=== PATIENT | female | born 1990 | race Hispanic/Latino ===

== ENCOUNTER 2019-03-06 04:13 | Emergency (ER) | payer SELFPAY ==
--- OUTSIDE RECORDS SUMMARY | 2019-03-06 04:16 | XMS REPORT ---
:1990 [facility] Address [address] [place] [address] Care Team Providers Name Role Phone Unavailable Unavailable Unavailable Problems This patient has no known problems. Allergies, Adverse Reactions, Alerts This patient has no known allergies or adverse reactions. Medications This patient has no known medications. Encounters Start End Encounter Admission Attending Care Care Encounter Date/Time Date/Time Type Type Clinicians Facility Department ID 2017-05-10 2017-05-10 Outpatient [facility] [id number] 00:00:00 00:00:00 2017-03-28 2017-03-28 Outpatient [facility] [id number] 00:00:00 00:00:00 2017-03-12 2017-03-12 Outpatient [facility] [id number] 11:12:09 11:12:09 2017-03-06 2017-03-06 Outpatient [facility] [id number] 00:00:00 00:00:00 2017-03-05 2017-03-05 Outpatient [facility] [id number] 00:00:00 00:00:00 2017-02-27 2017-02-27 Outpatient [facility] [id number] 13:56:11 13:56:11 2017-02-15 2017-02-15 Outpatient [facility] [id number] 10:01:10 10:01:10 2017-02-13 2017-02-13 Outpatient [facility] [id number] 09:28:41 09:28:41 2017-02-07 2017-02-07 Outpatient [facility] [id number] 13:24:53 13:24:53 2017-01-30 2017-01-30 Outpatient [facility] [id number] 14:37:13 14:37:13
--- OUTSIDE RECORDS SUMMARY | 2019-03-06 04:16 | XMS REPORT ---
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
--- NOTE | 2019-03-06 04:53 | ER ---
Nurse's Notes [facility] Name: Prachi Horne Age: 28 yrs Sex: Female : 1990 Arrival Date: 03/06/2019 Time: 04:16 Bed 20 Private MD: Diagnosis: Laceration without foreign body of right wrist Presentation: 03/06 04:15 Presenting complaint: EMS states: patient banging the window accidentally broke the rr5 glass and sustained laceration to right hand and forearm. 04:15 Transition of care: patient was not received from another setting of care. Complicating rr5 Factors: There are no complicating factors for this patient. Onset of symptoms was March 06, 2019. Risk Assessment: Do you want to hurt yourself or someone else? Patient reports no desire to harm self or others. Initial Sepsis Screen: Does the patient meet any 2 criteria? No. Patient's initial sepsis screen is negative. Does the patient have a suspected source of infection? No. Patient's initial sepsis screen is negative. Care prior to arrival: None. 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 - Social history:: Smoking status: Patient uses tobacco products, 2 sticks per day, Patient uses street drugs, marijuana. - Ebola Screening: : Patient negative for fever greater than or equal to 101.5 degrees Fahrenheit, and additional compatible Ebola Virus Disease symptoms Patient denies exposure to infectious person Patient denies travel to an Ebola-affected area in the 21 days before illness onset. Screenin:31 Abuse screen: Denies threats or abuse. Denies injuries from another. Nutritional rr5 screening: No deficits noted. Tuberculosis screening: No symptoms or risk factors identified. Fall Risk None identified. Total Martínez Fall Scale indicates No Risk (0-24 pts). Assessment: 04:15 General: Appears in no apparent distress. comfortable, Behavior is calm, cooperative, rr5 appropriate for age. Pain: Complains of pain in right hand Pain does not radiate. Pain currently is 4 out of 10 on a pain scale. Quality of pain is described as aching, Pain began suddenly, Is intermittent. 04:15 Neuro: Level of Consciousness is awake, alert, obeys commands, Oriented to person, rr5 place, time, situation, Appropriate for age. Cardiovascular: Capillary refill < 3 seconds Patient's skin is warm and dry. Respiratory: Airway is patent Respiratory effort is even, unlabored, Respiratory pattern is regular, symmetrical. GI: No signs and/or symptoms were reported involving the gastrointestinal system. : No signs and/or symptoms were reported regarding the genitourinary system. EENT: No signs and/or symptoms were reported regarding the EENT system. Derm: Wound noted medial aspect of right wrist and medial aspect of right hand Wound is lacerated wound. Musculoskeletal: Circulation, motion, and sensation intact. Capillary refill < 3 seconds, Range of motion: intact in right wrist palpable radial pulse. Injury Description: Laceration sustained to medial aspect of right wrist and medial aspect of right hand is clean, 0.5 to 2.5 cm long, bleeding moderately. 05:05 Reassessment: Patient appears in no apparent distress at this time. Patient is alert, rr5 oriented x 3, equal unlabored respirations, skin warm/dry/pink. discharge instruction given and explained without complaints made, verbalized understanding. Vital Signs: 04:15 BP 111 / 59; Pulse 94; Resp 17; Temp 97.5; Pulse Ox 99% ; Weight 44.45 kg; Height 5 ft. rr5 1 in. (154.94 cm); Pain 4/10; 05:05 BP 105 / 62; Pulse 90; Resp 16; Pulse Ox 99% on R/A; Pain 0/10; rr5 04:15 Body Mass Index 18.52 (44.45 kg, 154.94 cm) rr5 ED Course: 04:15 Patient has correct armband on for positive identification. Placed in gown. Bed in low rr5 position. Call light in reach. Side rails up X2. 04:15 Pulse ox on. NIBP on. rr5 04:16 Patient arrived in ED. gs 04:21 Munson, Sg, RN is Primary Nurse. rr5 04:25 Nikita De Los Santos MD is Attending Physician. 04:26 Triage completed. rr5 04:30 Arm band placed on left wrist. rr5 04:40 Assist provider with laceration repair on right hand that was 2.5 cm. or less using rr5 marizol. Set up tray. Performed by Nikita De Los Santos MD Dressed with 4X4s, Kerlix, Neosporin, Patient tolerated well. 05:09 Patient did not have IV access during this emergency room visit. rr5 Administered Medications: 04:40 Drug: Lidocaine (1 %) 5 mg {Note: given by dr. 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 Exp: rr5 12/13/2020. Lot #: [id number]. } Route: IM; Site: right deltoid; 05:10 Follow up: Response: No adverse reaction rr5 Outcome: 04:52 Discharge ordered by . 05:09 Discharged to home ambulatory. rr5 05:09 Condition: stable 05:09 Discharge instructions given to patient, Instructed on discharge instructions, follow up and referral plans. Demonstrated understanding of instructions, follow-up care. 05:11 Patient left the ED. rr5 Signatures: Nikita De Los Santos MD MD Sg Munson RN RN rr5
--- NOTE | 2019-03-06 04:53 | EDPHYS ---
Physician Documentation [facility] Name: Prachi Horne Age: 28 yrs Sex: Female : 1990 Arrival Date: 03/06/2019 Time: 04:16 Bed 20 Private MD: ED Physician Nikita Montano HPI: 03/06 04:47 This 28 yrs old Female presents to ER via EMS with complaints of Laceration. gs 04:47 The patient or guardian reports a laceration, clean, 8 cm(s). The complaints affect the gs right wrist diffusely. Onset: The symptoms/episode began/occurred just prior to arrival. Modifying factors: The symptoms are alleviated by nothing, the symptoms are aggravated by nothing. Associated signs and symptoms: Pertinent negatives: numbness distally. Compartment Syndrome negative for numbness, tingling. The patient has not experienced similar symptoms in the past. 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 - Social history:: Smoking status: Patient uses tobacco products, 2 sticks per day, Patient uses street drugs, marijuana. - Ebola Screening: : Patient negative for fever greater than or equal to 101.5 degrees Fahrenheit, and additional compatible Ebola Virus Disease symptoms Patient denies exposure to infectious person Patient denies travel to an Ebola-affected area in the 21 days before illness onset. ROS: 04:47 All other systems are negative. gs Exam: 04:47 Head/Face: Normocephalic, atraumatic. Eyes: Pupils equal round and reactive to light, gs extra-ocular motions intact. Lids and lashes normal. Conjunctiva and sclera are non-icteric and not injected. Cornea within normal limits. Periorbital areas with no swelling, redness, or edema. Cardiovascular: Regular rate and rhythm with a normal S1 and S2. No gallops, murmurs, or rubs. Normal PMI, no JVD. No pulse deficits. Respiratory: Lungs have equal breath sounds bilaterally, clear to auscultation and percussion. No rales, rhonchi or wheezes noted. No increased work of breathing, no retractions or nasal flaring. Abdomen/GI: Soft, non-tender, with normal bowel sounds. No distension or tympany. No guarding or rebound. No evidence of tenderness throughout. Back: No spinal tenderness. No costovertebral tenderness. Full range of motion. Neuro: Awake and alert, GCS 15, oriented to person, place, time, and situation. Cranial nerves II-XII grossly intact. Motor strength 5/5 in all extremities. Sensory grossly intact. Cerebellar exam normal. Normal gait. 04:47 Constitutional: The patient appears alert, awake, uncomfortable. 04:47 Musculoskeletal/extremity: ROM: no acute changes, Pulses: are normal with no appreciated deficits, Sensation intact. 04:47 Skin: injury, laceration(s), the wound is approximately 8 cm(s), with a depth of 1 cm(s), of the right wrist. Vital Signs: 04:15 BP 111 / 59; Pulse 94; Resp 17; Temp 97.5; Pulse Ox 99% ; Weight 44.45 kg; Height 5 ft. rr5 1 in. (154.94 cm); Pain 4/10; 05:05 BP 105 / 62; Pulse 90; Resp 16; Pulse Ox 99% on R/A; Pain 0/10; rr5 04:15 Body Mass Index 18.52 (44.45 kg, 154.94 cm) rr5 Laceration: 04:47 Wound Repair of 8cm ( 3.1in ) subcutaneous laceration to right wrist. Distal gs neuro/vascular/tendon intact. Anesthesia: Local anesthetic administered with 5 mls of 1% lidocaine, Local anesthetic administered with 5 mls of 1% lidocaine. Wound prep: Simple cleansing with betadine, Wound explored moderately, Copious irrigation. Skin closed with 10 Bharat using staple gun. Patient tolerated well. MDM: 04:25 Patient medically screened. gs 04:47 Data reviewed: vital signs, nurses notes. Response to treatment: the patient's symptoms gs have markedly improved after treatment, and as a result, I will discharge patient. Administered Medications: 04:40 Drug: Lidocaine (1 %) 5 mg {Note: given by dr. 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 Exp: rr5 12/13/2020. Lot #: [id number]. } Route: IM; Site: right deltoid; 05:10 Follow up: Response: No adverse reaction rr5 Disposition: 03/06/19 04:52 Discharged to Home. Impression: Laceration without foreign body of right wrist. - Condition is Stable. - Discharge Instructions: Laceration Care, Adult. - Medication Reconciliation Form, Thank You Letter, Antibiotic Education, Prescription Opioid Use form. - Follow up: Private Physician; When: 7 - 10 days; Reason: Staple/Suture removal. Signatures: Nikita Montano MD MD Sg Munson RN RN rr5 Corrections: (The following items were deleted from the chart) 05:11 04:52 03/06/2019 04:52 Discharged to Home. Impression: Laceration without foreign body rr5 of right wrist. Condition is Stable. Forms are Medication Reconciliation Form, Thank You Letter, Antibiotic Education, Prescription Opioid Use. Follow up: Private Physician; When: 7 - 10 days; Reason: Staple/Suture removal.
[2019-03-06] MEDS ORDERED: LIDOCAINE 1% MPF 5 ML VIAL ONE (04:56)
[2019-03-06] MEDS ORDERED: TETANUS & DIPHTHERIA TOX,ADULT 0.5 ML VIAL ONE (04:58)
== END 2019-03-06 05:11 | disposition home or self-care (01) ==
LOC: ER 04:13
PROC: 0JQG0ZZ Repair Right Lower Arm Subcutaneous Tissue and Fascia, Open Approach (ICD-10-PCS; principal; 2019-03-06)
DX: S61.511A Laceration without foreign body of right wrist, initial encounter (principal); W25.XXXA Contact with sharp glass, initial encounter; Y93.9 Activity, unspecified; Y92.9 Unspecified place or not applicable; Z23 Encounter for immunization; F32.9 Major depressive disorder, single episode, unspecified; F41.9 Anxiety disorder, unspecified; F31.9 Bipolar disorder, unspecified
CPT/HCPCS: 90471; 90714; 99284

== ENCOUNTER 2019-03-17 14:01 | Emergency (ER) | payer SELFPAY ==
--- OUTSIDE RECORDS SUMMARY | 2019-03-17 14:08 | XMS REPORT ---
:1990 [facility] Address [address] [place] [address] Care Team Providers Name Role Phone Unavailable Unavailable Unavailable Problems This patient has no known problems. Allergies, Adverse Reactions, Alerts This patient has no known allergies or adverse reactions. Medications This patient has no known medications. Encounters Start End Encounter Admission Attending Care Care Encounter Date/Time Date/Time Type Type Clinicians Facility Department ID 2017-05-10 2017-05-10 Outpatient [facility] [id number] 00:00:00 00:00:00 2017-03-28 2017-03-28 Outpatient [facility] [id number] 00:00:00 00:00:00 2017-03-12 2017-03-12 Outpatient [facility] [id number] 11:12:09 11:12:09 2017-03-06 2017-03-06 Outpatient [facility] [id number] 00:00:00 00:00:00 2017-03-05 2017-03-05 Outpatient [facility] [id number] 00:00:00 00:00:00 2017-02-27 2017-02-27 Outpatient [facility] [id number] 13:56:11 13:56:11 2017-02-15 2017-02-15 Outpatient [facility] [id number] 10:01:10 10:01:10 2017-02-13 2017-02-13 Outpatient [facility] [id number] 09:28:41 09:28:41 2017-02-07 2017-02-07 Outpatient [facility] [id number] 13:24:53 13:24:53 2017-01-30 2017-01-30 Outpatient [facility] [id number] 14:37:13 14:37:13
--- NOTE | 2019-03-17 14:24 | EDPHYS ---
Physician Documentation [facility] Name: Prachi Horne Age: 28 yrs Sex: Female : 1990 Arrival Date: 03/17/2019 Time: 14:04 Bed 12 Private MD: ED Physician Prashanth Ibrahim HPI: 03/17 14:16 This 28 yrs old Female presents to ER via Ambulatory with complaints of Staple kb Removal. 14:16 The patient has marizol on the right wrist. Previous treatment: The patient was kb initially treated 11 day(s) ago, the care was rendered at [facility], Treatment type: The patient's original treatment included marizol. Sutures/marizol progress: The patient's wound displays purulent drainage, redness at site. The patient has not experienced similar symptoms in the past. The patient has been recently seen at the [facility] Emergency Department. Pt reports she has had marizol in for 11 days and was told to get them out at this point, but doesn't feel like they are ready to come out. . 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 - Social history:: Smoking status: Patient uses tobacco products, denies chronic smoking, but will smoke occasionally. - Ebola Screening: : Patient denies travel to an Ebola-affected area in the 21 days before illness onset. ROS: 14:21 Constitutional: Negative for fever, chills, and weight loss, Cardiovascular: Negative kb for chest pain, palpitations, and edema, Respiratory: Negative for shortness of breath, cough, wheezing, and pleuritic chest pain, Abdomen/GI: Negative for abdominal pain, nausea, vomiting, diarrhea, and constipation, Back: Negative for injury and pain, MS/Extremity: Negative for injury and deformity, Neuro: Negative for headache, weakness, numbness, tingling, and seizure. 14:21 Skin: Positive for laceration(s), of the right wrist. Exam: 14:21 Constitutional: This is a well developed, well nourished patient who is awake, alert, kb and in no acute distress. Head/Face: Normocephalic, atraumatic. Chest/axilla: Normal chest wall appearance and motion. Nontender with no deformity. No lesions are appreciated. Cardiovascular: Regular rate and rhythm with a normal S1 and S2. No gallops, murmurs, or rubs. Normal PMI, no JVD. No pulse deficits. Respiratory: Lungs have equal breath sounds bilaterally, clear to auscultation and percussion. No rales, rhonchi or wheezes noted. No increased work of breathing, no retractions or nasal flaring. Abdomen/GI: Soft, non-tender, with normal bowel sounds. No distension or tympany. No guarding or rebound. No evidence of tenderness throughout. MS/ Extremity: Pulses equal, no cyanosis. Neurovascular intact. Full, normal range of motion. Neuro: Awake and alert, GCS 15, oriented to person, place, time, and situation. Cranial nerves II-XII grossly intact. Motor strength 5/5 in all extremities. Sensory grossly intact. Cerebellar exam normal. Normal gait. 14:21 Skin: Wound recheck: Staple laceration closure: mild drainage, mild erythema. Vital Signs: 14:10 BP 118 / 67; Pulse 78; Resp 16; Temp 98.7; Pulse Ox 100% on R/A; Height 5 ft. 1 in. aj1 (154.94 cm) (R); Pain 7/10; MDM: 14:16 Patient medically screened. kb 14:21 Data reviewed: vital signs, nurses notes. Data interpreted: Pulse oximetry: on room air kb is 100 %. Interpretation: normal. Counseling: I had a detailed discussion with the patient and/or guardian regarding: the historical points, exam findings, and any diagnostic results supporting the discharge/admit diagnosis, the need for outpatient follow up, a family practitioner, to return to the emergency department if symptoms worsen or persist or if there are any questions or concerns that arise at home. ED course: Educated on need to keep marizol in place for another 4 days. Will discharge home with antibiotics for infection of wound. Administered Medications: 15:12 Drug: KeFLEX 500 mg Route: PO; aj1 15:12 Drug: Bactrim (160 mg-800 mg (DS) 1 tablet Route: PO; aj1 Disposition: 15:14 Co-signature as Attending Physician, Prashanth Ibrahim MD. rn Disposition: 03/17/19 14:23 Discharged to Home. Impression: Local infection of the skin and subcutaneous tissue, unspecified. - Condition is Stable. - Discharge Instructions: Wound Infection, [id number]. - Prescriptions for Keflex 500 mg Oral Capsule - take 1 capsule by ORAL route every 8 hours for 10 days; 30 capsule. Bactrim DS 800- 160 mg Oral Tablet - take 1 tablet by ORAL route every 12 hours for 10 days; 20 tablet. - Medication Reconciliation Form, Thank You Letter, Antibiotic Education, Prescription Opioid Use form. - Follow up: Emergency Department; When: As needed; Reason: Worsening of condition. Follow up: Private Physician; When: 2 - 3 days; Reason: Recheck today's complaints, Continuance of care, Re-evaluation by your physician. Signatures: Dispatcher [employer] [facility] Parisa Tuttle, CORY-C CORY-Katherine Pérez RN RN aj1 Prashanth Ibrahim MD MD international project engineer: (The following items were deleted from the chart) 15:00 14:17 Wound Culture+[id number].LAB.BRZ ordered. [facility] 15:13 14:23 03/17/2019 14:23 Discharged to Home. Impression: Local infection of the skin and aj1 subcutaneous tissue, unspecified. Condition is Stable. Forms are Medication Reconciliation Form, Thank You Letter, Antibiotic Education, Prescription Opioid Use. Follow up: Emergency Department; When: As needed; Reason: Worsening of condition. Follow up: Private Physician; When: 2 - 3 days; Reason: Recheck today's complaints, Continuance of care, Re-evaluation by your physician. kb
--- NOTE | 2019-03-17 14:24 | ER ---
Nurse's Notes [facility] Name: Prachi Horne Age: 28 yrs Sex: Female : 1990 Arrival Date: 03/17/2019 Time: 14:04 Bed 12 Private MD: Diagnosis: Local infection of the skin and subcutaneous tissue, unspecified Presentation: 03/17 14:09 Presenting complaint: Patient states: She had marizol put in her right wrist 11 days aj1 ago and came to have them taken out. Transition of care: patient was not received from another setting of care. Onset of symptoms was March 17, 2019. Risk Assessment: Do you want to hurt yourself or someone else? Patient reports no desire to harm self or others. Initial Sepsis Screen: Does the patient meet any 2 criteria? No. Patient's initial sepsis screen is negative. Does the patient have a suspected source of infection? No. Patient's initial sepsis screen is negative. Care prior to arrival: None. 14:09 Method Of Arrival: Ambulatory aj1 14:09 Acuity: FLORES 5 aj1 Triage Assessment: 14:10 General: Appears in no apparent distress. uncomfortable, Behavior is calm, cooperative, aj1 appropriate for age. Pain: Complains of pain in right wrist Pain currently is 7 out of 10 on a pain scale. Neuro: Level of Consciousness is awake, alert, obeys commands, Oriented to person, place, time, situation. Cardiovascular: Patient's skin is warm and dry. Respiratory: Airway is patent Respiratory effort is even, unlabored, Respiratory pattern is regular, symmetrical. 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 - Social history:: Smoking status: Patient uses tobacco products, denies chronic smoking, but will smoke occasionally. - Ebola Screening: : Patient denies travel to an Ebola-affected area in the 21 days before illness onset. Screenin:12 Abuse screen: Denies threats or abuse. Denies injuries from another. Nutritional aj1 screening: No deficits noted. Tuberculosis screening: No symptoms or risk factors identified. Fall Risk None identified. Assessment: 15:12 General: Appears in no apparent distress. comfortable, Behavior is calm, cooperative, aj1 appropriate for age. Neuro: Level of Consciousness is awake, alert, obeys commands, Oriented to person, place, time, situation. Cardiovascular: Patient's skin is warm and dry. Respiratory: Airway is patent Respiratory effort is even, unlabored, Respiratory pattern is regular, symmetrical. Vital Signs: 14:10 BP 118 / 67; Pulse 78; Resp 16; Temp 98.7; Pulse Ox 100% on R/A; Height 5 ft. 1 in. aj1 (154.94 cm) (R); Pain 7/10; ED Course: 14:04 Patient arrived in ED. rg4 14:05 Parisa Tuttle FNP-C [facility]. kb 14:05 Prashanth Ibrahim MD is Attending Physician. kb 14:10 Triage completed. aj1 14:10 Arm band placed on Patient placed in an exam room. aj1 15:12 Patient has correct armband on for positive identification. Bed in low position. aj1 15:12 No provider procedures requiring assistance completed. Patient did not have IV access aj1 during this emergency room visit. Administered Medications: 15:12 Drug: KeFLEX 500 mg Route: PO; aj1 15:12 Drug: Bactrim (160 mg-800 mg (DS) 1 tablet Route: PO; aj1 Outcome: 14:23 Discharge ordered by . kb 15:12 Discharged to home ambulatory. aj1 15:12 Condition: good 15:12 Discharge instructions given to patient, Instructed on discharge instructions, follow up and referral plans. medication usage, Demonstrated understanding of instructions, follow-up care, medications, Prescriptions given X 2. 15:13 Patient left the ED. aj1 Signatures: Parisa Tuttle FNP-C FNP-Katherine Pérez, RN RN Magaly Dorsey rg4
[2019-03-17] MEDS ORDERED: SMZ./TMP. 800/160 MG TABLET ONE (15:12)
[2019-03-17] MEDS ORDERED: CEPHALEXIN 250 MG CAP ONE (15:12)
== END 2019-03-17 15:13 | disposition home or self-care (01) ==
LOC: ER 14:01
DX: S61.511D Laceration without foreign body of right wrist, subsequent encounter (principal); L08.9 Local infection of the skin and subcutaneous tissue, unspecified; F41.9 Anxiety disorder, unspecified; F31.9 Bipolar disorder, unspecified; F32.9 Major depressive disorder, single episode, unspecified; Z72.0 Tobacco use
CPT/HCPCS: 99283

== ENCOUNTER 2021-02-02 15:59 | Emergency (ER) | payer SELFPAY ==
--- OUTSIDE RECORDS SUMMARY | 2021-02-02 16:01 | XMS REPORT | Continuity of Care Document ---
:[address] [facility] t Address [address] [place] [address] Care Team Providers Name Role Phone Lenore Valentine Guillermo Attending Clinician Unavailable Indigo OG, L Attending Clinician Problems This patient has no known problems. Allergies, Adverse Reactions, Alerts This patient has no known allergies or adverse reactions. Family History Family Member Diagnosis Comments Start Date Stop Date Source Natural father Diabetes [facility] Social History Social Habit Start Date Stop Date Quantity Comments Source Sex Assigned At [facility] History of tobacco Cigarette Smoker [facility] use Cigarettes smoked 2019-02-25 2019-02-25 [facility] current (pack per 00:00:00 00:00:00 day) - Reported Tobacco use and 2019-02-25 2019-02-25 Never used [facility] alth exposure 00:00:00 00:00:00 Alcohol intake 2019-02-25 2019-02-25 Current drinker [employer] 00:00:00 00:00:00 of alcohol (finding) History [employer] 2017-02-13 2017-02-13 1 Ly Screamin Daily Deals Worry 00:00:00 00:00:00 History [employer] Food 2017-02-13 2017-02-13 1 Ly Screamin Daily Deals Scarcity 00:00:00 00:00:00 Smoking Status Start Date Stop Date Source Current some day smoker 2019-02-25 00:00:00 [facility] Medications Ordered Filled Start Stop Current Ordering Indication Dosage Frequency Signature Comments Components Source Medication Medication Date Date Medication? Clinician (SIG) Name Name ferrous Yes History of 325mg QD Take 1 H arris sulfate 325 5-10 anemia tablet by H ealth mg (65 mg 00:00: mouth iron) 00 daily tablet (with breakfast) . buPROPion Yes 300mg Take 300 Glenn ris (WELLBUTRIN 4-26 mg by Health XL) 300 mg 14:41: mouth extended 00 every release morning. tablet mirtazapine 2017 Yes 15mg Take 15 mg Ly (REMERON) 4-26 by mouth Health 15 mg 14:41: at bedtime tablet 00 nightly. hydrOXYzine Yes 50mg Take 50 mg Ly (ATARAX) 50 4-26 by mouth Heal th mg tablet 14:41: every 8 00 hours as needed for Anxiety. diphenhydrA Yes 50mg 50 mg Harri s MINE 4-[address] [facility] (BENADRYL) 14:41: bedtime as 50 mg 00 needed for capsule Sleep. Immunizations Ordered Immunization Filled Immunization Date Status Commen ts Source Name Name PPD 2017-01-16 Completed [facility] 00:00:00 Procedures This patient has no known procedures. Plan of Care Planned Activity Planned Date Details Comments Source Future Scheduled Test 2022 00:00:00 Screening for [facility] malignant neoplasm of cervix (procedure) [code = 960801964] Future Scheduled Test 2021-06-23 00:00:00 IMM Influenza [facility] Seasonal Jun to November (>/= 19 yrs) [code = IMM Influenza Seasonal Oct to November (>/= 19 yrs)] Future Scheduled Test 2013 00:00:00 Screening for [facility] malignant neoplasm of cervix (procedure) [code = 669029509] Future Scheduled Test 2008 00:00:00 COVID-19 Vaccine (1) [facility] [code = COVID-19 Vaccine (1)] Encounters Start End Encounter Admission Attending Care Care Encounter Source Date/Time Date/Time Type Type Clinicians Facility Department ID 2020-03-23 2020-03-23 [facility] [id number] 13:23:00 23:59:00 Encounter Daniel MARSH [id number] [facility] [id number] 2017-05-10 2017-05-10 Outpatient [facility] [id number] [place] 00:00:00 00:00:00 [facility] 2017-03-28 2017-03-28 Outpatient [facility] [id number] Ly 00:00:00 00:00:00 [facility] 2017-03-12 2017-03-12 Outpatient [facility] [id number] [place] 11:12:09 11:12:09 Health 2017-03-06 2017-03-06 Outpatient [facility] [id number] Ly 00:00:00 00:00:00 [facility] 2017-03-05 2017-03-05 Outpatient [facility] [id number] Ly 00:00:00 00:00:00 [facility] 2017-02-27 2017-02-27 Outpatient [facility] [id number] [place] 13:56:11 13:56:11 [facility] 2017-02-15 2017-02-15 Outpatient [facility] [id number] [place] 10:01:10 10:01:10 [facility] 2017-02-13 2017-02-13 Outpatient [facility] [id number] [place] 09:28:41 09:28:41 [facility] 2017-02-07 2017-02-07 Outpatient [facility] [id number] [place] 13:24:53 13:24:53 [facility] 2017-01-30 2017-01-30 Outpatient [facility] [id number] [place] 14:37:13 14:37:13 Health Results Test Description Test Time Test Comments Results Result Comments Source Hematology 2020-10-02 03:22:00 Test Item Value Reference Range Interpretation Comme nts Hematology (test code = WBCT) 6.4 thou/uL 4.8-10.8 N Hematology (test code = RBCT) 4.13 mill/uL 4.20-5.40 L Hematology (test code = HGBT) 12.0 g/dL 12.0-16.0 N Hematology (test code = HCTT) 34.7 % 36.0-47.0 L Hematology (test code = MCV) 84.0 fL 78.0-98.0 N Hematology (test code = MCH) 29.1 pg 27.0-31.0 N Hematology (test code = MCHC) 34.6 g/dL 32.0-36.0 N Hematology (test code = RDW) 13.5 % 11.5-14.5 N Hematology (test code = PLTT) 190 thou/uL 130-400 N Hematology (test code = MPV) 10.2 fL 7.4-10.4 N Hematology (test code = %NEUT) 51.4 % 42.0-75.0 N Hematology (test code = %LYMPH) 36.7 % 21.0-51.0 N Hematology (test code = %MONO) 8.6 % 0.0-10.0 N Hematology (test code = %EOS) 2.1 % 0.0-10.0 N Hematology (test code = %BASO) 1.2 % 0.0-1.0 H Hematology (test code = NEUT#) 3.3 thou/uL 1.40-6.50 N Hematology (test code = LYMPH#) 2.4 thou/uL 1.20-3.40 N Hematology (test code = MONO#) 0.6 thou/uL 0.11-0.59 H Hematology (test code = EOS#) 0.1 thou/uL 0.0-0.7 N Hematology (test code = BASO#) 0.1 thou/uL 0.0-0.2 N [id number] 03:19:00 Test Item Value Reference Range Interpretation Comments Chemistry (test 135 mmol/L 136-145 L code = NA-T) Chemistry (test 4.3 mmol/L 3.5-5.1 N code = K-T) Chemistry (test 107 mmol/L 98-107 N code = CL) Chemistry (test 22 mmol/L 22-29 N code = CO2) Chemistry (test 10 mmol/L 10-20 N code = ANGP) Chemistry (test 10 mg/dL 7.0-18.7 N code = BUN) Chemistry (test 0.68 mg/dL 0.6-1.1 N code = CREATT) Chemistry (test Greater than 90 Referenc e Range for code = EGFRMDRD) Estimated G FR: Gre ater than 90 mL/min/ 1.73 m2NOTE:The MDRD equation has no t been validated for use with theeld erly (over 70 years of age), women, patients with serious comorbi d condition or pe rsons with extremes o fbody size, muscle ma ss, or nutritional status. Chemistry (test 97 mg/dL 70-105 N code = GLU-T) Chemistry (test 8.8 mg/dL 7.8-10.44 N code = CA) Chemistry (test 0.2 mg/dL 0.2-1.2 N code = TBILI-T) Chemistry (test 7.1 g/dL 6.0-8.3 N code = TP) Chemistry (test 3.7 g/dL 3.5-5.0 N code = ALB) Chemistry (test 3.4 g/dL 2.4-3.5 N code = GLOB) Chemistry (test 1.1 g/dL 1.2-2.2 L code = AG) Chemistry (test 75 U/L 40-110 N code = ALP) Chemistry (test 16 U/L 5-34 N code = AST) Chemistry (test 10 U/L 8-55 N code = ALT) [id number] 03:19:00 Test Item Value Reference Range Interpretation Comments Chemistry (test code = LIP) 31 U/L 8-78 N [id number] 02:51:00 Test Item Value Reference Range Interpretation Comments Urinalysis (test code = Light-Yellow Yellow UACLR) Urinalysis (test code = Clear Clear UACLY) Urinalysis (test code = SPGR) 1.021 1.002-1.036 N Urinalysis (test code = AMILCAR) 5.0 5.0-9.0 N Urinalysis (test code = Negative Paty/uL Negative UALEU) Urinalysis (test code = Negative Negative UANIT) Urinalysis (test code = Negative mg/dL Neg-Trace PROUADIP) Urinalysis (test code = Normal mg/dL Negative GLUCU) Urinalysis (test code = KETU) Negative mg/dL Negative Urinalysis (test code = Normal mg/dL Less than 2 UAUROB) Urinalysis (test code = Negative Negative UABIL) Urinalysis (test code = Negative Negative UABLD) Urine Source: Urine Clean [id number] 02:51:00 Test Item Value Reference Range Interpretation Comments Urinalysis (test Negative Negative Method of s ensitivity- code = BHCGUT) INDETERMINANT : results should be repea sonu after 48-72 hrs POS ITIVE: results may be detected as early as 1 day after the first missed period A dilute urine specimen may no t contain representativel evels of hCG.If pregnanc y is still suspected, a fi rst morning urinespecimen O R a random blood specimen should be obtainedfrom e patient 48-72 hours lat er and re-tested. Urinalysis (test 1.021 1.002-1.036 N code = PREGUSG) US Gallbladder RUQ [facility] G[facility]EL [facility]ATHLEEN : 1990 [facility] Name: GISEL KATH[facility]EN [address] Phys: [place] [id number] : 1990 Age: 30 SEX:F [phone] Exam Date: 10/02/20 Status: DEP ER Acct: [id number] Loc: ERS Pt Unit #: [id number] Report #: [id number] CC: Vishal Millan ULTRASOUND REPORT Order # Category/Exam [id number] ULT/US Gallbladder RUQ ([id number]): . Results PRELIMINARY REPORT/[facility]/EMERGENCY AFTER HOURS PROCEDURE EXAM: US Abdomen Limited, Right Upper Quadrant. CLINICAL HISTORY: HX: RUQ PAIN. SEE NOTES ON LAST IMAGE. THANKS TECHNIQUE: Real-time ultrasound of the right upper quadrant with image documentation. COMPARISON: None provided. FINDINGS: LIVER: 2 hyperechoic masses seen measuring up to 5.3 x 3.4 cm. GALLBLADDER: Gallstones seen in the gallbladder neck measuring up to 1.5 x 0.7 cm. No wall thickening. No pericholecystic fluid. Positive sonographic Oscar sign elicited. COMMON BILE DUCT: No dilation. CBD equals 4 mm. PANCREAS: Unremarkable as visualized. The distal pancreas is obscured by overlying bowel gas. RIGHT KIDNEY: Unremarkable. No hydronephrosis. IMPRESSION: Gallstones with positive sonographic Oscar sign. Cannot exclude a possible early acute cholecystitis. 2 hyperechoic masses seen in the liver showing up to 5.3 x 3.4 cm. This may represent possible hemangiomas, however triphasic CT or MRI recommended for further evaluation. ELECTRONICALLY SIGNED BY: Lauren West MD Oct 02, 2020 4:03:27AM [employer] DIRECTOR This report is intended for review by the ordering physician only, in accordance of law.If you receive this report in error, please call [facility] at [phone]. FINALREPORT Final report by Dr. Johnson Emergency after-hours study ULTRASOUND ABDOMEN LIMITED: (RIGHT UPPER QUADRANT) DATE: 10/02/2020 HISTORY: 30-year-old female with right upper quadrant abdominal pain FINDINGS: Agree with preliminary report by [facility]. IMPRESSION: 1) Positive for cholelithiasis: 15 x 7 mm gallstone in gallbladder neck. Distended lumen. Reportedly positive sonographic Oscar sign, questionable for acute cholecystitis. 2) Two moderately large solid hepatic masses. One of them is up to 5.6 cm. Recommend multiphase MRIof abdomen, liver mass protocol, with and without contrast. Transcribed Date/Time: 10/02/2020 8:52 AM Reported By: David Johnson MD Electronically Signed Date/Time: 10/02/2055 Technologist: EMELI Dictated Date/Time: 10/02/2022 Transcribed Date/Time:
[2021-02-02] MEDS ORDERED: BUPIVACAINE 0.5% PF 10 ML VIAL ONE (17:02)
[2021-02-02] MEDS ORDERED: LIDOCAINE 1% MPF 30 ML VIAL ONE (17:02)
[2021-02-02] MEDS ORDERED: LIDOCAINE 1% W/EPI 1:100,000 MDV 20 ML VIAL ONE (17:08)
[2021-02-02] MEDS ORDERED: HYDROCODONE/APAP 5/325 MG TAB ONE (17:23)
--- NOTE | 2021-02-02 18:47 | EDPHYS ---
Physician Documentation [facility] Name: Prachi Horne Age: 30 yrs Sex: Female : 1990 Arrival Date: 02/02/2021 Time: 16:08 Bed 7 Private MD: ED Physician Emerson Castro HPI: 02/02 16:50 This 30 yrs old Female presents to ER via Ambulatory with complaints of Insect cp Bite. 16:50 The patient presents with an abscess of the right buttock. cp 16:50 Description: draining, erythematous, swollen, tense. Onset: The symptoms/episode cp began/occurred 3 day(s) ago. Possible cause(s): spider bite. Associated signs and symptoms: Pertinent positives: drainage, erythema, swelling, Pertinent negatives: fever. Severity of symptoms: in the emergency department the symptoms are unchanged, despite home interventions. 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 - Social history:: Smoking status: Patient denies any tobacco usage or history of. ROS: 17:00 Constitutional: Negative for body aches, chills, fever. cp 17:00 Eyes: Negative for injury, pain, redness, and discharge. cp 17:00 ENT: Negative for ear pain, sore throat, difficulty swallowing, difficulty handling secretions. 17:00 Cardiovascular: Negative for chest pain. 17:00 Respiratory: Negative for cough, shortness of breath, wheezing. 17:00 Abdomen/GI: Negative for abdominal pain, nausea, vomiting, and diarrhea. 17:00 Skin: Positive for abscess, of the right buttock. 17:00 Neuro: Negative for altered mental status. 17:00 All other systems are negative. Exam: 17:05 Constitutional: The patient appears in no acute distress, alert, awake, non-toxic, well cp developed, well nourished. 17:05 Head/Face: Normocephalic, atraumatic. cp 17:05 Chest/axilla: Inspection: normal. 17:05 Cardiovascular: Rate: normal. 17:05 Respiratory: the patient does not display signs of respiratory distress, Respirations: normal, no use of accessory muscles, no retractions, labored breathing, is not present. 17:05 Abdomen/GI: Inspection: abdomen appears normal, Palpation: abdomen is soft and non-tender, in all quadrants. 17:05 Skin: abscess, that is moderate sized, of the right buttock, with surrounding cellulitis, that is mild. Vital Signs: 16:12 BP 114 / 62; Pulse 85; Resp 17; Temp 98.2(TE); Pulse Ox 99% on R/A; Weight 52.62 kg; jl7 Height 5 ft. 1 in. (154.94 cm); Pain 10/10; 16:12 Body Mass Index 21.92 (52.62 kg, 154.94 cm) jl7 Procedures: 18:42 I \T\ D: Incision and drainage was performed for an abscess of the right buttocks Prepped cp with Betadine, Anesthetized with 10 ccs of mixture 1% lidocaine with epi and 0.5% marcaine. Incised with #11 blade. Drained moderate amount purulent fluid. Cultures obtained. Packed with iodoform gauze, Dressing: sterile 4x4 gauze, the patient tolerated the procedure well. MDM: 16:36 Patient medically screened. cp 18:00 Differential diagnosis: abscess, cellulitis, insect bite, sepsis. cp 18:45 Data reviewed: vital signs, nurses notes. cp 18:45 Counseling: I had a detailed discussion with the patient and/or guardian regarding: the cp historical points, exam findings, and any diagnostic results supporting the discharge/admit diagnosis, the need for outpatient follow up, a family practitioner, to return to the emergency department if symptoms worsen or persist or if there are any questions or concerns that arise at home. Response to treatment: the patient's symptoms have markedly improved after treatment, and as a result, I will discharge patient. 02/02 18:45 Order name: Wound Culture 02/02 16:39 Order name: I\T\D Setup; Complete Time: 17:02 cp Administered Medications: 17:05 Drug: [place] (HYDROcodone-acetaminophen) 5 mg-325 mg 1 tabs Route: PO; em 18:32 Follow up: Response: No adverse reaction; Marked relief of symptoms; Pain is decreased; em RASS: Alert and Calm (0) 18:20 Drug: Marcaine (bupivacaine) (0.5 %) 10 ml Volume: 10 ml; Route: Infiltration; Site: em affected area; 18:47 Follow up: Response: No adverse reaction em 18:20 Drug: Lidocaine (1 %) 10 ml Volume: 20 ml; Route: Infiltration; Site: affected area; em 18:47 Follow up: Response: No adverse reaction em 18:49 Drug: Bactrim (trimethoprim-sulfamethoxazole) (160 mg-800 mg (DS) 2 tablet Route: PO; em 19:04 Follow up: Response: No adverse reaction em 18:49 Drug: Clindamycin 600 mg Route: PO; em 19:05 Follow up: Response: No adverse reaction em Disposition: 02/02/21 18:46 Discharged to Home. Impression: Cutaneous abscess of buttock - right. - Condition is Stable. - Discharge Instructions: Skin Abscess, Incision and Drainage. - Prescriptions for Clindamycin HCl 300 mg Oral Capsule - take 1 capsule by ORAL route every 6 hours for 10 days; 40 capsule. Tylenol- Codeine #3 300-30 mg Oral Tablet - take 2 tablets by ORAL route every 8-10 hours As needed; 15 tablet. Bactrim DS 800- 160 mg Oral Tablet - take 1 tablet by ORAL route every 12 hours for 10 days; 20 tablet. - School release form, Work release form, Medication Reconciliation Form, Thank You Letter, Antibiotic Education, Prescription Opioid Use form. - Follow up: Private Physician; When: 48 Hours; Reason: Wound Recheck. - Problem is new. - Symptoms have improved. Addendum: 02/04/2021 07:45 Co-signature as Attending Physician, Emerson Castro MD I agree with the assessment and c del rosario plan of care. Signatures: Dispatcher [employer] Emerson Villaseñor MD MD cha Munoz, Edgar RN RN em Emerson Lepe PA PA cp Leal, Jahala, RN RN jl7 Corrections: (The following items were deleted from the chart) 02/02 19:08 18:46 02/02/2021 18:46 Discharged to Home. Impression: Cutaneous abscess of buttock - em right. Condition is Stable. Forms are Medication Reconciliation Form, Thank You Letter, Antibiotic Education, Prescription Opioid Use. Follow up: Private Physician; When: 48 Hours; Reason: Wound Recheck. Problem is new. Symptoms have improved. cp
--- NOTE | 2021-02-02 18:47 | ER ---
Nurse's Notes [facility] Name: Prachi Horne Age: 30 yrs Sex: Female : 1990 Arrival Date: 02/02/2021 Time: 16:08 Bed 7 Private MD: Diagnosis: Cutaneous abscess of buttock-right Presentation: 02/02 16:12 Chief complaint: Patient states: Not sure if something bit me or what but spot on right jl7 butt cheek x 3 days, draining pus, painful. Coronavirus screen: Client denies travel out of the [place] in the last 14 days. At this time, the client does not indicate any symptoms associated with coronavirus-19. Ebola Screen: No symptoms or risks identified at this time. Initial Sepsis Screen: Does the patient meet any 2 criteria? No. Patient's initial sepsis screen is negative. Does the patient have a suspected source of infection? No. Patient's initial sepsis screen is negative. Risk Assessment: Do you want to hurt yourself or someone else? Patient reports no desire to harm self or others. Onset of symptoms was January 31, 2021. Care prior to arrival: None. 16:12 Method Of Arrival: Ambulatory 7 16:12 Acuity: FLORES 4 jl7 Triage Assessment: 16:15 Bite description: bite sustained to right gluteus darlene by an unknown animal, animal jl7 information: vaccination(s) is not applicable. General: Appears in no apparent distress. uncomfortable, Behavior is calm, cooperative, appropriate for age. Pain: Complains of pain in right gluteus darlene Pain currently is 10 out of 10 on a pain scale. 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 - Social history:: Smoking status: Patient denies any tobacco usage or history of. Screenin:40 Abuse screen: Denies threats or abuse. Nutritional screening: No deficits noted. em Tuberculosis screening: No symptoms or risk factors identified. Fall Risk None identified. Assessment: 16:55 General: Appears in no apparent distress. comfortable, Behavior is calm, cooperative, em appropriate for age, Denies fever. Pain: Complains of pain in buttocks. Neuro: Level of Consciousness is awake, alert, obeys commands, Oriented to person, place, time, situation. Cardiovascular: Capillary refill < 3 seconds Patient's skin is warm and dry. Respiratory: Airway is patent Respiratory effort is even, unlabored, Respiratory pattern is regular, symmetrical. Derm: Skin is intact, Skin is pink, warm \T\ dry. reports abscess on buttocks that has drainage, denies fever. Musculoskeletal: Capillary refill < 3 seconds, Range of motion: intact in all extremities. 17:15 General: Appears in no apparent distress. em 17:50 Reassessment: Patient appears in no apparent distress at this time. Patient and/or em family updated on plan of care and expected duration. Pain level reassessed. Patient is alert, oriented x 3, equal unlabored respirations, skin warm/dry/pink. Vital Signs: 16:12 BP 114 / 62; Pulse 85; Resp 17; Temp 98.2(TE); Pulse Ox 99% on R/A; Weight 52.62 kg; jl7 Height 5 ft. 1 in. (154.94 cm); Pain 10/10; 16:12 Body Mass Index 21.92 (52.62 kg, 154.94 cm) jl7 ED Course: 16:08 Patient arrived in ED. mr 16:14 Triage completed. jl7 16:15 Arm band placed on right wrist. jl7 16:31 Emerson Lepe PA is PHCP. cp 16:31 Emerson Castro MD is Attending Physician. cp 16:38 William Bardales, AVELINO is Primary Nurse. em 16:40 Patient has correct armband on for positive identification. Placed in gown. em 18:33 Assist provider with I \T\ D: of an abscess on buttocks Set up I\T\D tray. Performed by cady PEREZ Culture sent to lab. Wound packed. iodoform gauze, Dressing with Neosporin and 4X4s, tape Patient tolerated well. 18:59 Patient did not have IV access during this emergency room visit. em Administered Medications: 17:05 Drug: [place] (HYDROcodone-acetaminophen) 5 mg-325 mg 1 tabs Route: PO; em 18:32 Follow up: Response: No adverse reaction; Marked relief of symptoms; Pain is decreased; em RASS: Alert and Calm (0) 18:20 Drug: Marc[place] (bupivacaine) (0.5 %) 10 ml Volume: 10 ml; Route: Infiltration; Site: em affected area; 18:47 Follow up: Response: No adverse reaction em 18:20 Drug: Lidocaine (1 %) 10 ml Volume: 20 ml; Route: Infiltration; Site: affected area; em 18:47 Follow up: Response: No adverse reaction em 18:49 Drug: Bactrim (trimethoprim-sulfamethoxazole) (160 mg-800 mg (DS) 2 tablet Route: PO; em 19:04 Follow up: Response: No adverse reaction em 18:49 Drug: Clindamycin 600 mg Route: PO; em 19:05 Follow up: Response: No adverse reaction em Outcome: 18:46 Discharge ordered by MD. cp 18:59 Discharged to home ambulatory. em 18:59 Condition: good 18:59 Discharge instructions given to patient, Instructed on discharge instructions, follow up and referral plans. medication usage, wound care, Demonstrated understanding of instructions, follow-up care, medications, wound care, Prescriptions given X 2. 19:08 Patient left the ED. em Addendum: 02/06/2021 09:55 Addendum: Culture Results: Positive wound culture. No further action required. Bacteria s v sensitive to prescribed antibiotic. Signatures: Nallely Rosado, RN Naina Simon Edgar, RN RN em Page, Corey, PA PA cp Leal, Jahala, RN RN jl7
[2021-02-02] MEDS ORDERED: SMZ./TMP. 800/160 MG TABLET ONE (19:05)
[2021-02-02 20:09] VITALS: BP 114/62; TEMP 98.2; O2SAT 99
== END 2021-02-02 19:08 | disposition home or self-care (01) ==
LOC: ER 15:59
PROC: 0J990ZZ Drainage of Buttock Subcutaneous Tissue and Fascia, Open Approach (ICD-10-PCS; principal; 2021-02-02)
DX: L02.31 Cutaneous abscess of buttock (principal); W57.XXXA Bitten or stung by nonvenomous insect and other nonvenomous arthropods, initial encounter
CPT/HCPCS: 87070; 87077; 87186; 87205; 99284

== ENCOUNTER 2021-02-04 14:42 | Emergency (ER) | payer SELFPAY ==
--- OUTSIDE RECORDS SUMMARY | 2021-02-04 14:45 | XMS REPORT | Continuity of Care Document ---
:1990 Author Organization [facility] t Address [address] [place] [address] Care Team Providers Name Role Phone Meme Lenore Li Attending Clinician Unavailable Indigo OG, L Attending Clinician Problems This patient has no known problems. Allergies, Adverse Reactions, Alerts This patient has no known allergies or adverse reactions. Family History Family Member Diagnosis Comments Start Date Stop Date Source Natural father Diabetes [facility] Social History Social Habit Start Date Stop Date Quantity Comments Source Sex Assigned At [facility] History of tobacco Cigarette Smoker [facility] use Cigarettes smoked 2019-02-25 2019-02-25 [facility] current (pack per 00:00:00 00:00:00 day) - Reported Tobacco use and 2019-02-25 2019-02-25 Never used [facility] alth exposure 00:00:00 00:00:00 Alcohol intake 2019-02-25 2019-02-25 Current drinker [employer] 00:00:00 00:00:00 of alcohol (finding) History [facility] Food 2017-02-13 2017-02-13 1 [facility] Worry 00:00:00 00:00:00 History [employer] Food 2017-02-13 2017-02-13 1 [facility] Scarcity 00:00:00 00:00:00 Smoking Status Start Date Stop Date Source Current some day smoker 2019-02-25 00:00:00 [facility] is Health Medications Ordered Filled Start Stop [...] extended 00 every release morning. tablet mirtazapine Yes 15mg Take 15 mg Ly (REMERON) 4-26 by mouth Health 15 mg 14:41: at bedtime tablet 00 nightly. hydrOXYzine Yes 50mg Take 50 mg Ly (ATARAX) 50 4-26 by mouth Heal th mg tablet 14:41: every 8 00 hours as needed for Anxiety. diphenhydrA Yes 50mg 50 mg Harri s MINE 4-26 nightly at [facility] (BENADRYL) 14:41: bedtime as 50 mg 00 needed for capsule Sleep. Immunizations Ordered Immunization Filled Immunization Date Status Commen ts Source Name Name PPD 2017-01-16 Completed [facility] 00:00:00 Procedures This patient has no known procedures. Plan of Care Planned Activity Planned Date Details Comments Source Future Scheduled Test 2022 00:00:00 Screening for [facility] malignant neoplasm of cervix (procedure) [code = 471285340] Future Scheduled Test 2021-06-23 00:00:00 IMM Influenza [facility] Seasonal Oct to November (>/= 19 yrs) [code = IMM Influenza Seasonal Oct to November (>/= 19 yrs)] Future Scheduled Test 2013 00:00:00 Screening for [facility] malignant neoplasm of cervix (procedure) [code = 636679117] Future Scheduled Test 2008 00:00:00 COVID-19 Vaccine (1) [facility] [code = COVID-19 Vaccine (1)] Encounters Start End Encounter Admission Attending Care Care Encounter Source Date/Time Date/Time Type Type Clinicians Facility Department ID 2020-03-23 2020-03-23 [facility] [id number] 13:23:00 23:59:00 Encounter Daniel MARSH [id number] [facility] [id number] 2017-05-10 2017-05-10 Outpatient [facility] [id number] Ly 00:00:00 00:00:00 [facility] 2017-03-28 2017-03-28 Outpatient [facility] [id number] Ly 00:00:00 00:00:00 [facility] 2017-03-12 2017-03-12 Outpatient [facility] [id number] Ly 11:12:09 11:12:09 [facility] 2017-03-06 2017-03-06 Outpatient [facility] [id number] Ly 00:00:00 00:00:00 [facility] 2017-03-05 2017-03-05 Outpatient [facility] [id number] Ly 00:00:00 00:00:00 [facility] 2017-02-27 2017-02-27 Outpatient [facility] [id number] [place] 13:56:11 13:56:11 [facility] 2017-02-15 2017-02-15 Outpatient [facility] [id number] [place] 10:01:10 10:01:10 [facility] 2017-02-13 2017-02-13 Outpatient [facility] [id number] Ly 09:28:41 09:28:41 [facility] 2017-02-07 2017-02-07 Outpatient [facility] [id number] [place] 13:24:53 13:24:53 [facility] 2017-01-30 2017-01-30 Outpatient [facility] [id number] [place] 14:37:13 14:37:13 Health Results Test Description Test [...] code = BASO#) 0.1 thou/uL 0.0-0.2 N [id number] 03:19:00 Test Item Value Reference Range Interpretation [...] 10 U/L 8-55 N code = ALT) [id number] 03:19:00 Test Item Value Reference Range Interpretation Comments Chemistry (test code = LIP) 31 U/L 8-78 N [id number] 02:51:00 Test Item Value Reference Range Interpretation [...] Negative Negative UABLD) Urine Source: Urine Clean [id number] 02:51:00 Test Item Value Reference Range Interpretation [...] N code = PREGUSG) [facility] : 1990 [facility]: GISEL KATHLEEN [address] Phys: [place] [address] : 1990 Age: 30 SEX:F [phone] Exam Date: 10/02/20 Status: DEP ER Acct: [id number] Loc: ERS Pt Unit #: [id number] Report #: [id number] CC: Vishal Millan ULTRASOUND REPORT Order # Category/Exam [id number] ULT/US Gallbladder RUQ ([id number]): . Results PRELIMINARY REPORT/[facility]/EMERGENCY AFTER HOURS [...] Lauren West MD Oct 02, 2020 4:03:27AM [employer] This report is intended for review by the ordering physician only, in accordance of law.If you receive this report in error, please call [facility] at [phone]. FINALREPORT Final report by Dr. Johnson Emergency [...]
--- NOTE | 2021-02-04 17:22 | ER ---
Nurse's Notes [facility] Name: Prachi Horne Age: 30 yrs Sex: Female : 1990 Arrival Date: 02/04/2021 Time: 14:43 Bed 27 Private MD: Diagnosis: Encounter for change or removal of surgical wound dressing Presentation: 02/04 15:21 Chief complaint: Patient states: "I was here the day before yesterday and they cleaned aa5 out a wound on my butt and they put packing in it and told me to come back Saturday to get it removed". Coronavirus screen: Client denies travel out of the [place] in the last 14 days. At this time, the client does not indicate any symptoms associated with coronavirus-19. Ebola Screen: Patient denies travel to an Ebola-affected area in the 21 days before illness onset. Initial Sepsis Screen: Does the patient meet any 2 criteria? No. Patient's initial sepsis screen is negative. Does the patient have a suspected source of infection? No. Patient's initial sepsis screen is negative. Risk Assessment: Do you want to hurt yourself or someone else? Patient reports no desire to harm self or others. Onset of symptoms was January 2021. 15:21 Method Of Arrival: Ambulatory aa5 15:21 Acuity: FLORES 4 aa5 Triage Assessment: 15:22 General: Appears in no apparent distress. comfortable, Behavior is calm, cooperative, aa5 appropriate for age. Pain: Complains of pain in buttocks Pain currently is 10 out of 10 on a pain scale. Neuro: Level of Consciousness is awake, alert, obeys commands, Oriented to person, place, time, situation. Cardiovascular: Patient's skin is warm and dry. Respiratory: Airway is patent Respiratory effort is even, unlabored, Respiratory pattern is regular, symmetrical. GI: No signs and/or symptoms were reported involving the gastrointestinal system. 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 Flu vaccine is up to date. - Social history:: Smoking status: Patient/guardian denies using tobacco. Screenin:00 Abuse screen: Denies threats or abuse. Nutritional screening: No deficits noted. aa5 Tuberculosis screening: No symptoms or risk factors identified. Fall Risk None identified. Assessment: 16:58 General: Appears comfortable, Behavior is calm, cooperative. Pain: Complains of pain in aa5 left buttocks. Neuro: Level of Consciousness is awake, alert, obeys commands, Oriented to person, place, time, situation. Cardiovascular: Patient's skin is warm and dry. Respiratory: Airway is patent Respiratory effort is even, unlabored, Respiratory pattern is regular, symmetrical. GI: No signs and/or symptoms were reported involving the gastrointestinal system. : No signs and/or symptoms were reported regarding the genitourinary system. EENT: No signs and/or symptoms were reported regarding the EENT system. Derm: Skin is pink, warm \\T\\ dry. open wound noted to left buttocks with packing noted, no redness noted adjacent to wound. Musculoskeletal: Range of motion: intact in all extremities. 17:24 Reassessment: Patient is alert, oriented x 3, equal unlabored respirations, skin aa5 warm/dry/pink. Vital Signs: 15:21 BP 102 / 74; Pulse 77; Resp 18; Temp 98.2; Pulse Ox 100% on R/A; Weight 53.07 kg (R); aa5 Height 5 ft. 1 in. (154.94 cm) (R); Pain 10/10; 15:21 Body Mass Index 22.11 (53.07 kg, 154.94 cm) aa5 ED Course: 14:43 Patient arrived in ED. am2 14:44 Emerson Lepe PA is PHCP. cp 14:44 Emerson Castro MD is Attending Physician. cp 15:22 Triage completed. aa5 15:22 Arm band placed on Patient placed in waiting room, Patient notified of wait time. aa5 16:50 Joan Alcazar, RN is Primary Nurse. aa5 17:00 Patient has correct armband on for positive identification. aa5 17:00 Assited PA with removal of packing from abscess to left buttocks and application of new aa5 packing to site, dressed with gauze and tape by PA. 17:24 Patient did not have IV access during this emergency room visit. aa5 Administered Medications: No medications were administered Outcome: 17:21 Discharge ordered by . henry 17:24 Discharged to home ambulatory. aa5 17:24 Condition: stable 17:24 Discharge instructions given to patient, Instructed on discharge instructions, follow up and referral plans. wound care, Demonstrated understanding of instructions, follow-up care, wound care. 17:26 Patient left the ED. cp Signatures: Joan Alcazar RN RN aa5 Emerson Lepe PA PA cp Moreno, Amanda am2 Corrections: (The following items were deleted from the chart) 18:34 17:00 remove packing from abscess to left buttocks and apply new packing to site, aa5 dressed with gauze and tape by ANA. aa5
--- NOTE | 2021-02-04 17:22 | EDPHYS ---
Physician Documentation [facility] Name: Prachi Horne Age: 30 yrs Sex: Female : 1990 Arrival Date: 02/04/2021 Time: 14:43 Bed 27 Private MD: ED Physician Emerson Castro HPI: 02/04 17:12 This 30 yrs old Female presents to ER via Ambulatory with complaints of Wound cp Check - packing removal. 17:12 Patient presents to ED for recheck of: abscess. The affected area is on the right cp buttock. Previous treatment: The patient was initially treated 2 day(s) ago, the care was rendered at [facility], Treatment type: The patient's original treatment included an I\T\D, Outpatient prescription(s): The patient was given prescription(s) for Bactrim, clindamycin, Previous recheck: the patient has not been checked since the original treatment. Progress: The patient reports improved. 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 Flu vaccine is up to date. - Social history:: Smoking status: Patient/guardian denies using tobacco. ROS: 17:14 All other systems are negative. cp Exam: 17:14 Skin: Wound recheck: Abscess: the wound has improved, decreased discharge, decreased cp erythema, the packing is in place. Vital Signs: 15:21 BP 102 / 74; Pulse 77; Resp 18; Temp 98.2; Pulse Ox 100% on R/A; Weight 53.07 kg (R); aa5 Height 5 ft. 1 in. (154.94 cm) (R); Pain 10/10; 15:21 Body Mass Index 22.11 (53.07 kg, 154.94 cm) aa5 MDM: 16:43 Patient medically screened. [place] 17:14 Data reviewed: vital signs, nurses notes. cp 17:20 Counseling: I had a detailed discussion with the patient and/or guardian regarding: the cp historical points, exam findings, and any diagnostic results supporting the discharge/admit diagnosis, the need for outpatient follow up, a family practitioner, to return to the emergency department if symptoms worsen or persist or if there are any questions or concerns that arise at home. Response to treatment: the patient's symptoms have markedly improved after treatment, and as a result, I will discharge patient. Administered Medications: No medications were administered Disposition: 17:30 Chart complete. 02/05 07:01 Co-signature as Attending Physician, Emerson Castro MD I agree with the assessment and [facility] plan of care. Disposition: 02/04/21 17:21 Discharged to Home. Impression: Encounter for change or removal of surgical wound dressing. - Condition is Stable. - Discharge Instructions: How to Change Your Dressing, Wound Care, Incision and Drainage, Care After. - Medication Reconciliation Form, Thank You Letter, Antibiotic Education, Prescription Opioid Use form. - Follow up: Private Physician; When: 48 Hours; Reason: Wound Recheck. - Problem is new. - Symptoms have improved. Signatures: Emerson Castro MD MD cha Calderon, Audri RN RN aa5 Emerson Lepe PA PA Corrections: (The following items were deleted from the chart) 02/04 17:26 17:21 02/04/2021 17:21 Discharged to Home. Impression: Encounter for change or removal cp of surgical wound dressing. Condition is Stable. Forms are Medication Reconciliation Form, Thank You Letter, Antibiotic Education, Prescription Opioid Use. Follow up: Private Physician; When: 48 Hours; Reason: Wound Recheck. Problem is new. Symptoms have improved. 02/05 01:36 02/04 17:14 Counseling: I had a detailed discussion with the patient and/or guardian regarding: the historical points, exam findings, and any diagnostic results supporting the discharge/admit diagnosis, the need for outpatient follow up, a family practitioner, to return to the emergency department if symptoms worsen or persist or if there are any questions or concerns that arise at home, 02/05 01:36 02/04 17:14 Response to treatment: the patient's symptoms have markedly improved after cp treatment, and as a result, I will discharge patient, cp
[2021-02-04 17:35] VITALS: BP 102/74; TEMP 98.2; O2SAT 100
== END 2021-02-04 17:26 | disposition home or self-care (01) ==
LOC: ER 14:42
DX: Z48.01 Encounter for change or removal of surgical wound dressing (principal)
CPT/HCPCS: 99281

== ENCOUNTER 2021-02-06 15:11 | Emergency (ER) | payer SELFPAY ==
--- OUTSIDE RECORDS SUMMARY | 2021-02-06 15:14 | XMS REPORT | Continuity of Care Document ---
:1990 Author Organization [facility] t Address [address] [place] [address] Care Team Providers Name Role Phone Lenore Valentine Guillermo Attending Clinician Unavailable Indigo OG, L Attending Clinician Problems This patient has no known problems. Allergies, Adverse Reactions, Alerts This patient has no known allergies or adverse reactions. Family History Family Member Diagnosis Comments Start Date Stop Date Source Natural father Diabetes [facility] Social History Social Habit Start Date Stop Date Quantity Comments Source Sex Assigned At [facility] History of tobacco Cigarette Smoker [facility] use Cigarettes smoked 2019-02-25 2019-02-25 [facility] current (pack per 00:00:00 00:00:00 day) - Reported Tobacco use and 2019-02-25 2019-02-25 Never used [facility] alth exposure 00:00:00 00:00:00 Alcohol intake 2019-02-25 2019-02-25 Current drinker [employer] 00:00:00 00:00:00 of alcohol (finding) History [employer] 2017-02-13 2017-02-13 1 [facility] [employer] Worry 00:00:00 00:00:00 History [employer] 2017-02-13 2017-02-13 1 [facility] [employer] Scarcity 00:00:00 00:00:00 Smoking Status Start Date Stop Date Source Current some day smoker 2019-02-25 00:00:00 [facility] is Health Medications Ordered Filled Start Stop [...] mg Harri s MINE 4-26 nightly at [facility] (BENADRYL) 14:41: bedtime as 50 mg 00 needed for capsule Sleep. Immunizations Ordered Immunization Filled Immunization Date Status Commen ts Source Name Name PPD 2017-01-16 Completed [facility] 00:00:00 Procedures This patient has no known procedures. Plan of Care Planned Activity Planned Date Details Comments Source Future Scheduled Test 2022 00:00:00 Screening for [facility] malignant neoplasm of cervix (procedure) [code = 560479917] Future Scheduled Test 2021-06-23 00:00:00 IMM Influenza [facility] Seasonal Jun to November (>/= 19 yrs) [code = IMM Influenza Seasonal Oct to November (>/= 19 yrs)] Future Scheduled Test 2013 00:00:00 Screening for [facility] malignant neoplasm of cervix (procedure) [code = 584574945] Future Scheduled Test 2008 00:00:00 COVID-19 Vaccine (1) [facility] [code = COVID-19 Vaccine (1)] Encounters Start End Encounter Admission Attending Care Care Encounter Source Date/Time Date/Time Type Type Clinicians Facility Department ID 2020-03-23 2020-03-23 [facility] [id number] 13:23:00 23:59:00 Encounter Daniel MARSH [id number] [facility] [id number] 2017-05-10 2017-05-[address] [facility] [id number] Ly 00:00:00 00:00:00 [facility] 2017-03-28 2017-03-[address] [facility] [id number] Ly 00:00:00 00:00:00 [facility] 2017-03-12 2017-03-[address] [facility] [id number] Ly 11:12:09 11:12:09 Health 2017-03-06 2017-03-[address] [facility] [id number] Ly 00:00:00 00:00:00 [facility] 2017-03-05 2017-03-[address] [facility] [id number] Ly 00:00:00 00:00:00 [facility] 2017-02-27 2017-02-[address] [facility] [id number] [place] 13:56:11 13:56:11 [facility] 2017-02-15 2017-02-[address] [facility] [id number] [place] 10:01:10 10:01:10 [facility] 2017-02-13 2017-02-[address] [facility] [id number] [place] 09:28:41 09:28:41 [facility] 2017-02-07 2017-02-[address] [facility] [id number] [place] 13:24:53 13:24:53 [facility] 2017-01-30 2017-01-[address] [facility] [id number] [place] 14:37:13 14:37:13 Health Results Test Description Test [...] code = BASO#) 0.1 thou/uL 0.0-0.2 N [id number] 03:19:00 Test Item Value Reference Range Interpretation [...] 10 U/L 8-55 N code = ALT) [id number] 03:19:00 Test Item Value Reference Range Interpretation Comments Chemistry (test code = LIP) 31 U/L 8-78 N [id number] 02:51:00 Test Item Value Reference Range Interpretation [...] Negative Negative UABLD) Urine Source: Urine Clean [id number] 02:51:00 Test Item Value Reference Range Interpretation [...] N code = PREGUSG) US Gallbladder RUQ [facility] : 1990 [facility]: GIS[facility] KATH[facility]EN [address] Phys: [place] [address] : 1990 Age: 30 SEX:F [phone] Exam Date: 10/02/20 Status: DEP ER Acct: [id number] Loc: ERS Pt Unit #: [id number] Report #: [id number] CC: Vishal Millan ULTRASOUND REPORT Order # Category/Exam [id number] ULT/US Gallbladder RUQ ([id number]): . 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 FINALREPORT Final report by Dr. Johnson Emergency [...]
--- NOTE | 2021-02-06 15:59 | ER ---
Nurse's Notes [facility] Name: Prachi Horne Age: 30 yrs Sex: Female : 1990 Arrival Date: 02/06/2021 Time: 15:14 Bed Treatment Private MD: Diagnosis: Encounter for change or removal of nonsurgical wound dressing Presentation: 02/06 15:25 Method Of Arrival: Ambulatory ca1 15:25 Chief complaint: Patient states: Was here 2 days ago to have my packing removed, but he ca1 changed it and said to come back here 2 days after for the packing to be removed on buttocks. Coronavirus screen: Client denies travel out of the [place] in the last 14 days. At this time, the client does not indicate any symptoms associated with coronavirus-19. Ebola Screen: Patient negative for fever greater than or equal to 101.5 degrees Fahrenheit, and additional compatible Ebola Virus Disease symptoms Patient denies exposure to infectious person. Patient denies travel to an Ebola-affected area in the 21 days before illness onset. No symptoms or risks identified at this time. Initial Sepsis Screen: Does the patient meet any 2 criteria? No. Patient's initial sepsis screen is negative. Does the patient have a suspected source of infection? No. Patient's initial sepsis screen is negative. Risk Assessment: Do you want to hurt yourself or someone else? Patient reports no desire to harm self or others. Onset of symptoms was February 06, 2021. 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 Flu vaccine is up to date. - Social history:: Smoking status: Patient denies any tobacco usage or history of. Screenin:50 Abuse screen: Denies threats or abuse. Denies injuries from another. Nutritional ld1 screening: No deficits noted. Tuberculosis screening: No symptoms or risk factors identified. Fall Risk None identified. Assessment: 15:50 General: Appears in no apparent distress. comfortable, Behavior is calm, cooperative, ld1 appropriate for age. Pain: Denies pain. Neuro: Level of Consciousness is awake, alert, obeys commands, Oriented to person, place, time, situation, Appropriate for age. Cardiovascular: Capillary refill < 3 seconds Patient's skin is warm and dry. Respiratory: Airway is patent Respiratory effort is even, unlabored, Respiratory pattern is regular, symmetrical. GI: Abdomen is flat, non-distended. : No signs and/or symptoms were reported regarding the genitourinary system. EENT: No signs and/or symptoms were reported regarding the EENT system. Derm: Reports She has packing that needs to be removed from coccyx area. Denies pain. No s/s of infection. Musculoskeletal: No signs and/or symptoms reported regarding the musculoskeletal system. Vital Signs: 15:25 BP 110 / 73; Pulse 72; Resp 16 S; Temp 97.7(TE); Pulse Ox 100% on R/A; Weight 53.98 kg ca1 (R); Height 5 ft. 1 in. (154.94 cm) (R); Pain 0/10; 15:50 BP 114 / 74; Pulse 75; Resp 18; Temp 98.0(TE); Pulse Ox 100% on R/A; Weight 53.98 kg; ld1 Pain 0/10; 15:50 Body Mass Index 22.49 (53.98 kg, 154.94 cm) ld1 ED Course: 15:14 Patient arrived in ED. ds1 15:28 Triage completed. ca1 15:28 Arm band placed on right wrist. ca1 15:46 Paris[facility]uttle [facility]C [facility]. kb 15:46 Margarito Hernandez MD is Attending Physician. kb 15:50 Mckenzie Hernández, AVELINO is Primary Nurse. ld1 15:50 Patient has correct armband on for positive identification. Call light in reach. Pulse ld1 ox on. NIBP on. Door closed. Noise minimized. Warm blanket given. 16:04 No provider procedures requiring assistance completed. Patient did not have IV access ld1 during this emergency room visit. Administered Medications: No medications were administered Outcome: 15:58 Discharge ordered by . kb 16:04 Discharged to home ambulatory. ld1 16:04 Condition: stable 16:04 Discharge instructions given to patient, Instructed on discharge instructions, follow up and referral plans. Demonstrated understanding of instructions, follow-up care. 16:08 Patient left the ED. ld1 Signatures: Parisa Tuttle FNP-C INDUSTRIAL MAINTENANCE TECHNICIAN-Sandy Molina ds1 Estrellita Liu RN RN ca1 Mckenzie Hernández RN RN ld1 Corrections: (The following items were deleted from the chart) 15:28 15:25 Method Of Arrival: Ambulatory ca1 ca1 15:29 15:25 Acuity: FLORES 4 ca1 ca1
--- NOTE | 2021-02-06 15:59 | EDPHYS ---
Physician Documentation [facility] Name: Prachi Horne Age: 30 yrs Sex: Female : 1990 Arrival Date: 02/06/2021 Time: 15:14 Bed Treatment Private MD: ED Physician Margarito Hernandez HPI: 02/06 16:33 This 30 yrs old Female presents to ER via Ambulatory with complaints of kb Packing Removal. 16:33 Patient presents to ED for recheck of: abscess. The affected area is on the right kb gluteus darlene. Previous treatment: The patient was initially treated on February 02, 2021, the care was rendered at [facility], Treatment type: The patient's original treatment included an I\T\D, oral antibiotics, Outpatient prescription(s): The patient was given prescription(s) for. Previous treatment: Previous recheck: was rechecked on February 04, 2021. Progress: The patient reports decreased drainage, fever, pain, redness, swelling. The patient has not experienced similar symptoms in the past. The patient has been recently seen at the [facility] Emergency Department. Pt reports she had an I\T\D 4 days ago, came in 2 days ago to have packing removed. They repacked it 2 days ago and told her to return for removal. 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 Flu vaccine is up to date. - Social history:: Smoking status: Patient denies any tobacco usage or history of. ROS: 16:02 Constitutional: Negative for fever, chills, and weight loss. kb 16:02 Skin: Positive for abscess, of the right gluteus darlene. 16:02 All other systems are negative. Exam: 16:32 Constitutional: This is a well developed, well nourished patient who is awake, alert, kb and in no acute distress. Respiratory: Respirations even and unlabored. No increased work of breathing, no retractions or nasal flaring. MS/ Extremity: Pulses equal, no cyanosis. Neurovascular intact. Full, normal range of motion. Neuro: Awake and alert, GCS 15, oriented to person, place, time, and situation. Moves all extremities. Normal gait. Psych: Awake, alert, with orientation to person, place and time. Behavior, mood, and affect are within normal limits. 16:32 Skin: Wound recheck: Abscess: the wound has improved, decreased discharge, decreased erythema, decreased pain, decreased surrounding cellulitis, decreased swelling, the packing is in place, packing removed. Vital Signs: 15:25 BP 110 / 73; Pulse 72; Resp 16 S; Temp 97.7(TE); Pulse Ox 100% on R/A; Weight 53.98 kg ca1 (R); Height 5 ft. 1 in. (154.94 cm) (R); Pain 0/10; 15:50 BP 114 / 74; Pulse 75; Resp 18; Temp 98.0(TE); Pulse Ox 100% on R/A; Weight 53.98 kg; ld1 Pain 0/10; 15:50 Body Mass Index 22.49 (53.98 kg, 154.94 cm) ld1 MDM: 15:48 Patient medically screened. kb 16:00 Data reviewed: vital signs, nurses notes. Data interpreted: Pulse oximetry: on room air kb is 100 %. Interpretation: normal. Counseling: I had a detailed discussion with the patient and/or guardian regarding: the historical points, exam findings, and any diagnostic results supporting the discharge/admit diagnosis, the need for outpatient follow up, a general surgeon, to return to the emergency department if symptoms worsen or persist or if there are any questions or concerns that arise at home. 16:35 ED course: Site appears to be healing well. Pt educated to continue antibiotics and to kb follow up with general surgery. . Administered Medications: No medications were administered Disposition: 18:21 Co-signature as Attending Physician, Margarito Hernandez MD. ma2 Disposition: 02/06/21 15:58 Discharged to Home. Impression: Encounter for change or removal of nonsurgical wound dressing. - Condition is Stable. - Discharge Instructions: Incision and Drainage, Care After. - Medication Reconciliation Form, Thank You Letter, Antibiotic Education, Prescription Opioid Use form. - Follow up: Emergency Department; When: As needed; Reason: Worsening of condition. Follow up: Private Physician; When: 2 - 3 days; Reason: Recheck today's complaints, Continuance of care, Re-evaluation by your physician. Signatures: Parisa Tuttle FNP-C FNP-Margarito Salmeron MD MD ma2 Estrellita Liu RN RN ca1 Mckenzie Hernández RN RN ld1 Corrections: (The following items were deleted from the chart) 16:08 15:58 02/06/2021 15:58 Discharged to Home. Impression: Encounter for change or removal ld1 of nonsurgical wound dressing. Condition is Stable. Forms are Medication Reconciliation Form, Thank You Letter, Antibiotic Education, Prescription Opioid Use. Follow up: Emergency Department; When: As needed; Reason: Worsening of condition. Follow up: Private Physician; When: 2 - 3 days; Reason: Recheck today's complaints, Continuance of care, Re-evaluation by your physician. kb
[2021-02-06 17:00] VITALS: O2SAT 100
[2021-02-06 17:02] VITALS: BP 114/74; TEMP 98
== END 2021-02-06 16:08 | disposition home or self-care (01) ==
LOC: ER 15:11
DX: Z48.00 Encounter for change or removal of nonsurgical wound dressing (principal); F41.9 Anxiety disorder, unspecified; F31.9 Bipolar disorder, unspecified
CPT/HCPCS: 99283

== ENCOUNTER 2022-04-15 17:46 | Emergency (ER) | payer SELFPAY ==
--- OUTSIDE RECORDS SUMMARY | 2022-04-15 17:49 | XMS REPORT | Continuity of Care Document ---
:1990 Author Organization [facility] t Address [address] [place] [address] Care Team Providers Name Role Phone KRISTEN CAMPOS Primary Care Physician Unavailable Kyrie CAMPOS Attending Clinician Unavailable Andres CORRIGAN C Attending Clinician Guillermo Valentine Attending Clinician Unavailable Provider, Temp Attending Clinician Unavailable Indigo OG, L Attending Clinician Payers Payer Name Policy Type Policy Number Effective Date Expiration Date Robb sam [id number] 2021 00:00:00 Problems Condition Condition Condition Status Onset Resolution Last Treating Co mments Source Name Details Category Date Date Treatment Clinician Date Nexplanon Nexplanon Disease Active Uni vers removal removal 4-13 ity of 00:00: [place] [facility] Nexplanon Nexplanon Disease Active Uni vers insertion insertion 4-13 ity of 00:00: [place] [facility] Other Other Disease Active Univers general general 4-07 ity of [place] and advice 00 Me dical for for Branch contracept contracept jyothi jyothi management management History of History of Disease Active Overview : Univers drug abuse drug abuse 8-17 Formattin ity of 00:00: g of this 00 note Medical might be Branch different from the original. Clean 4 months since rehab Problem Condition [facility] (Rajeev) Allergies, Adverse Reactions, Alerts Allergy Allergy Status Severity Reaction(s) Onset Inactive Treating Comm ents Source Name Type Date Date Clinician NO KNOWN Drug Active [facility] ALLERGIE Class ity of [address] [facility] Social History Social Habit Start Date Stop Date Quantity Comments Source Exposure to Not sure [facility] SARS-CoV-2 [facility] (event) Alcohol intake 2022-01-03 2022-01-03 0 /d [facility] 00:00:00 00:00:00 [facility] Tobacco Comment 2021-12-28 2021-12-28 vapes daily [facility] 00:00:00 00:00:00 Medical Branch Tobacco use and 2016-05-09 2016-05-09 Current user [facility] exposure 00:00:00 00:00:00 [facility] Sex Assigned At [birth year] [facility] 00:[facility]:00 00:00:00 Zane (Rajeev) Smoking Status Start Date Stop Date Source Unknown if ever smoked RAYMOND [facility] (Rajeev) Never smoker [facility] Medications Ordered Filled Start Stop Current Ordering Indication Dosage Frequency Signature Comments Components Source Medication Medication Date Date Medication? Clinician (SIG) Name Name etonogestre 2021- No [id number] 68mg 68 mg, Univers L 01-03 Subdermal, ity of (NEXPLANON) 15:15: 14:14 ONCE NOW, [place] implant 68 00 :00 1 dose, On Med ical mg [facility] Branch 01/03/22 at 1015, Routine
Use approved by: CONCRETE VIBRATOR OPERATOR etonogestre 2021- No [id number] 68mg Univers L 01-03 ity of (NEXPLANON) 15:15: 14:14 [place] implant 68 00 :00 Medical Branch CYANOCOBALA 2021- No 1{tbl} Take 1 U nivers MIN, 12-28 tablet by ity of VITAMIN 09:24: 00:00 mouth. [place] B-12, 54 :00 Medical (VITAMIN Branch B-12 ORAL) buPROPion 2021- No 10mg Take 10 mg U nivers XL 12-28 by mouth ity of (WELLBUTRIN 09:24: 00:00 daily. [place] as XL) 150 mg 51 :00 Medical 24 hr Branch tablet mirtazapine 15mg Take 15 mg Univers (REMERON) 12-28 by mouth ity o f 15 mg 09:24: 00:00 at [place] tablet 51 :00 bedtime. Medical Branch No [id number] 1{tbl} Take 1 Univers multivitami 05-09 tablet by it y of n ( 00:00[place] 00[place] VIT[place] 00 :00 daily. Medical tablet Branch ferrous [id number] 325mg Take 1 Univers sulfate 325 05-09 tablet by it y of mg (65 mg 00:00: 00:00 mouth [place] iron) EC 00 :00 daily. Medical tablet Branch Immunizations Ordered Filled Immunization Date Status Comments [facility] e Immunization Name Name Influenza Virus 2021-12-28 Completed Universit y of Vaccine Quad .5 mL 00:00:00 [facility] IM 6+ MO Branch HPV9 2021-12-28 Completed University 00:00:[address] [facility] Influenza Virus 2021-12-28 Completed Universit y of Vaccine Quad .5 mL 00:00:00 [facility] IM 6+ MO Branch HPV9 2021-12-28 Completed University 00:00:[address] [facility] PPD (TB) 2017-01-16 Completed University 00:00:[address] [facility] PPD (TB) 2017-01-16 Completed [facility] 00:00:[address] [facility] Vital Signs Vital Name Observation Time Observation Value Comments Source Systolic blood 2022-01-03 13:37:00 136 mm[Hg] Univer sity of pressure [facility] Diastolic blood 2022-01-03 13:37:00 74 mm[Hg] Unive rsity of pressure [facility] Heart rate 2022-01-03 13:37:00 54 /min Universi ty [facility] Body temperature 2022-01-03 13:37:00 35.72 Gretchen [facility] Respiratory rate 2022-01-03 13:37:00 18 /min [facility] Body height 2022-01-03 13:37:[address] [facility] Body weight 2022-01-03 13:37:[address] [facility] BMI 2022-01-03 13:37:00 24.45 kg/m2 Universi ty [facility] Systolic blood 2021-12-28 14:17:00 123 mm[Hg] Univer sity of [facility] Diastolic blood 2021-12-28 14:17:00 81 mm[facility]Hg] [facility] 2021-12-28 14:17:00 55 /min [facility] Body temperature 2021-12-28 14:16:00 36.06 Gretchen [facility] Respiratory rate 2021-12-28 14:16:00 18 /min [facility] Body height 2021-12-28 14:16:00 154.9 cm Universi [facility] Body weight 2021-12-28 14:16:00 58.968 kg [facility] BMI 2021-12-28 14:16:00 24.56 kg/m2 [facility] Procedures Procedure Date / Time Performing Clinician Source Performed POCT TEST 2022-01-03 13:46:00 Kristen Campos [facility] HIV 1/2 AG-AB WITH 2021-12-28 15:10:00 Kristen Campos [facility] REFLEX [facility] PAP SMEAR-LIQUID 2021-12-28 15:10:00 Kristen Campos [facility] BASED-CP [facility] GALV ONLY - SYPHILIS 2021-12-28 15:10:00 [facility] I[facility]IGM [facility] GARDASIL 9 (HPV 9V) 2021-12-28 14:43:46 Kristen Campos [facility] VACCINE [facility] FLU VACC ([phone]), 2021-12-28 14:38:00 [facility], QUAD Medical Bran ch US Gallbladder RUQ 2020-10-02 02:45:00 [facility] Encounters Start End Encounter Admission Attending Care Care Encounter Source Date/Time Date/Time Type Type Clinicians Facility Department ID 2022-01-17 2022-01-17 Outpatient R AKINSIPE, [facility] [id number] Univers 08:15:00 08:15:00 KRISTEN ity o [facility] 2022-01-17 2022-01-17 Outpatient R AKINSIPE, [facility] [id number] Univers 08:15:00 08:15:00 KRISTEN [id number] ity o [facility] 2022-01-17 2022-01-17 Outpatient R AKINSIPE, [facility] [id number] Univers 08:15:00 08:15:00 KRISTEN ity o [facility] 2022-01-03 2022-01-03 Outpatient R AKINSIPE, [facility] [id number] Univers 08:30:00 09:11:06 KRISTEN ity o [facility] 2022-01-03 2022-01-03 Office Akinsipe, [facility] [id number] Univers 08:30:00 09:11:06 Visit Kristen C CONCRETE VIBRATOR OPERATOR [id number] ity of [facility] [id number] [place] as MATERNAL [id number] [facility] ical & CHILD [address] [place] [address] 2022-01-03 2022-01-03 Outpatient R AKINSIPE, [facility] [id number] Univers 08:30:00 08:30:00 KRISTEN ity o [facility] 2021-12-28 2021-12-28 Outpatient R AKINSIPE, [facility] [id number] Univers 09:00:00 10:13:45 KRISTEN ity o [facility] 2021-12-28 2021-12-28 Office Akinsipe, [facility] [id number] Univers 09:00:00 10:13:45 Visit Kristen C CONCRETE VIBRATOR OPERATOR [id number] ity of [facility] [id number] [place] as MATERNAL [id number] [facility] ical & CHILD 107 [facility] 2020-10-02 2020-10-02 Departed ER Meme, [facility] [id number] [facility] 02:07:00 04:27:00 Emergency [facility] [address] [facility] Kelvin CY SERVICES (Gorge an) 2020-10-02 2020-10-02 Emergency ER Provider, [facility] [id number] 02:07:00 02:07:00 Express -[id number] Lumeenakshi s [facility] Zane Boo 2020-03-23 2020-03-23 [facility] [id number] 13:23:00 23:59:00 Encounter Daniel MARSH [id number] [facility] [id number] 2017-05-10 2017-05-10 Outpatient [facility] [id number] Ly 00:00:00 00:00:00 Health 2017-03-28 2017-03-28 Outpatient [facility] [id number] [place] 00:00:00 00:00:00 Health 2017-03-12 2017-03-12 Outpatient [facility] [id number] [place] 11:12:09 11:12:09 Health 2017-03-06 2017-03-06 Outpatient [facility] [id number] [place] 00:00:00 00:00:00 [facility] 2017-03-05 2017-03-05 Outpatient [facility] [id number] Ly 00:00:00 00:00:00 Health 2017-02-27 2017-02-27 Outpatient [facility] [id number] [place] 13:56:11 13:56:11 Health 2017-02-15 2017-02-15 Outpatient [facility] [id number] Ly 10:01:10 10:01:10 Health 2017-02-13 2017-02-13 Outpatient [facility] [id number] Ly 09:28:41 09:28:41 Health 2017-02-07 2017-02-07 Outpatient [facility] [id number] Ly 13:24:53 13:24:53 Health 2017-01-30 2017-01-30 Outpatient [facility] [id number] Ly 14:37:13 14:37:13 Health Results Test Description Test Time Test Comments Results Result Comments Source POCT TEST 2022-01-03 13:46:00 Test Item Value Reference Range Interpretation Comme nts POCT PREG (test code = 1605) Negative On board controls acceptable with C Line (test code = 3574) Yes POCT PREG LOT # (test code = 3575) POCT PREG TEST DATE (test code = 3576) [facility] [place] [facility] SYPHILIS [id number] 15:23:00 Test Item Value Reference Range Interpretation Comments Syphilis IgG/IgM (test Non-reactive Non-reactive code = 22646-0) UTE (test code = UTE) Non-reactive - No serologic evidence of T. pallidum infection. Cannot exclude incubating or early syphilis. Submit a second specimen in 2-4 weeks if syphilis is clinically suspected. Equivocal - Further testing to follow. Reactive - Further testing to follow. Lab Interpretation (test Normal code = 11487-2) [facility] [place] [facility]2 AG-AB WITH [id number] 06:04:13 Test Item Value Reference Range Interpretation Comments HIV Negative Negative Semi-quantitative (test code = 75327-5) UTE (test code = Non-reactive for HIV-1 UTE) antigen and HIV-1/HIV-2 antibodies. ?No laboratory evidence of HIV infection. ?Repeat in 2-4 weeks if acute HIV infection is suspected. [facility] [place] [facility]2021-01-10 03:22:00 Test Item Value Reference Range Interpretation Comments Hematology (test code = WBCT) 6.4 thou/uL [...] code = BASO#) 0.1 thou/uL 0.0-0.2 N [id number] 03:19:00 Test Item Value Reference Range Interpretation [...] 10 U/L 8-55 N code = ALT) [id number] 03:19:00 Test Item Value Reference Range Interpretation Comments Chemistry (test code = LIP) 31 U/L 8-78 N [id number] 02:51:00 Test Item Value Reference Range Interpretation [...] Negative Negative UABLD) Urine Source: Urine Clean [id number] 02:51:00 Test Item Value Reference Range Interpretation [...] a random blood specimen should be obtainedfrom th e patient 48-72 hours lat er and re-tested. Urinalysis (test 1.021 1.002-1.036 N code = PREGUSG) Leukocytes [#/volume] in Blood by Automated [id number] 02:49:00 Test Item Value Reference Range Interpretation Comments White Blood Count (test code = 6.4 thou/uL 4.8-10.8 6690-2) [facility]Blood erythrocytes automated count (number/volume)2020-10-02 02:49:00 Test Item Value Reference Range Interpretation Comments Red Blood Count (test code = 4.13 mill/uL 4.20-5.40 789-8) [facility]Blood hemoglobin measurement (mass/volume) 2020-10-02 02:49:00 Test Item Value Reference Range Interpretation Comments Hemoglobin (test code = 718-7) 12.0 g/dL 12.0-16.0 [facility]Automated erythrocyte mean corpuscular volume 2020-10-02 02:49:00 Test Item Value Reference Range Interpretation Comments Mean Corpuscular Volume (test code = 84.0 fL 78.0-98.0 787-2) [facility]Automated erythrocyte mean corpuscular hemoglobin (mass per erythrocyte)2020-10-02 02:49:00 Test Item Value Reference Range Interpretation Comments Mean Corpuscular Hemoglobin (test 29.1 pg 27.0-31.0 code = 785-6) [facility]Automated erythrocyte mean corpuscular hemoglobin concentration measurement (mass/[id number] 02:49:00 Test Item Value Reference Range Interpretation Comments Mean Corpuscular Hemoglobin Concent 34.6 g/dL 32.0-36.0 (test code = 786-4) [facility])Automated erythrocyte distribution width ratio 2020-10-02 02:49:00 Test Item Value Reference Range Interpretation Comments Red Cell Distribution Width (test code 13.5 % 11.5-14.5 = 788-0) [facility])Automated blood platelet count (count/volume) 2020-10-02 02:49:00 Test Item Value Reference Range Interpretation Comments Platelet Count (test code = 190 thou/uL 130-400 777-3) [facility])Automated blood platelet mean [id number] 02:49:00 Test Item Value Reference Range Interpretation Comments Mean Platelet Volume (test code = 10.2 fL 7.4-10.4 40658-8) [facility])Automated blood neutrophils/100 leukocytes 2020-10-02 02:49:00 Test Item Value Reference Range Interpretation Comments Neutrophils % (test code = 770-8) 51.4 % 42.0-75.0 [facility])Lymphocytes/100 leukocytes in Blood by Automated [id number] 02:49:00 Test Item Value Reference Range Interpretation Comments Lymphocytes % (test code = 736-9) 36.7 % 21.0-51.0 [facility])Automated blood monocytes/100 leukocytes 2020-10-02 02:49:00 Test Item Value Reference Range Interpretation Comments Monocytes % (test code = 5905-5) 8.6 % 0.0-10.0 [facility])Automated blood eosinophils/100 leukocytes 2020-10-02 02:49:00 Test Item Value Reference Range Interpretation Comments Eosinophils % (test code = 713-8) 2.1 % 0.0-10.0 [facility])Automated blood basophils/100 leukocytes 2020-10-02 02:49:00 Test Item Value Reference Range Interpretation Comments Basophils % (test code = 706-2) 1.2 % 0.0-1.0 [facility])Blood neutrophils automated count (number/volume)2020-10-02 02:49:00 Test Item Value Reference Range Interpretation Comments Neutrophils # (test code = 751-8) 3.3 thou/uL 1.40-6.50 [facility])Lymphocytes [#/volume] in Blood by Automated [id number] 02:49:00 Test Item Value Reference Range Interpretation Comments Lymphocytes # (test code = 731-0) 2.4 thou/uL 1.20-3.40 [facility]Serum or plasma sodium measurement (moles/volume)2020-10-02 02:49:00 Test Item Value Reference Range Interpretation Comments Sodium Level (test code = 2951-2) 135 mmol/L 136-145 [facility])Blood monocytes automated count (number/volume)2020-10-02 02:49:00 Test Item Value Reference Range Interpretation Comments Monocytes # (test code = 742-7) 0.6 thou/uL 0.11-0.59 [facility]Blood eosinophils automated count (count/volume)2020-10-02 02:49:00 Test Item Value Reference Range Interpretation Comments Eosinophils # (test code = 711-2) 0.1 thou/uL 0.0-0.7 [facility]Automated blood basophil count (count/volume) 2020-10-02 02:49:00 Test Item Value Reference Range Interpretation Comments Basophils # (test code = 704-7) 0.1 thou/uL 0.0-0.2 [facility]Serum or plasma potassium measurement (moles/volume)2020-10-02 02:49:00 Test Item Value Reference Range Interpretation Comments Potassium Level (test code = 4.3 mmol/L 3.5-5.1 2823-3) [facility]Serum or plasma chloride measurement (moles/volume)2020-10-02 02:49:00 Test Item Value Reference Range Interpretation Comments Chloride Level (test code = 107 mmol/L 98-107 2075-0) [facility])Serum or plasma carbon dioxide, total measurement (moles/volume)2020-10-02 02:49:00 Test Item Value Reference Range Interpretation Comments Carbon Dioxide Level (test code = 22 mmol/L 22-29 2027-9) [facility])Serum or plasma anion [id number] 02:49:00 Test Item Value Reference Range Interpretation Comments Anion Gap (test code = 48549-6) 10 mmol/L 10-20 [facility]Serum or plasma urea nitrogen measurement (mass/volume)2020-10-02 02:49:00 Test Item Value Reference Range Interpretation Comments Blood Urea Nitrogen (test code = 10 mg/dL 7.0-18.7 3094-0) [facility])Serum or plasma creatinine measurement (mass/volume)2020-10-02 02:49:00 Test Item Value Reference Range Interpretation Comments Creatinine (test code = 2160-0) 0.68 mg/dL 0.6-1.1 [facility]Glucose [Mass/volume] in Serum or Plasma 2020-10-02 02:49:00 Test Item Value Reference Range Interpretation Comments Glucose Level (test code = 2345-7) 97 mg/dL 70-105 [facility])Serum or plasma calcium measurement (mass/volume)2020-10-02 02:49:00 Test Item Value Reference Range Interpretation Comments Calcium Level (test code = 05302-6) 8.8 mg/dL 7.8-10.44 [facility]Serum or plasma total bilirubin measurement (mass/volume)2020-10-02 02:49:00 Test Item Value Reference Range Interpretation Comments Total Bilirubin (test code = 0.2 mg/dL 0.2-1.2 1975-2) [facility]Serum or plasma protein measurement (mass/volume)2020-10-02 02:49:00 Test Item Value Reference Range Interpretation Comments Serum Total Protein (test code = 7.1 g/dL 6.0-8.3 2885-2) [facility] albumin measurement by bromocresol green (BCG) dye binding method ([id number] 02:49:00 Test Item Value Reference Range Interpretation Comments Albumin (test code = 81118-2) 3.7 g/dL 3.5-5.0 [facility])Globulin [Mass/volume] in Serum by calculation 2020-10-02 02:49:00 Test Item Value Reference Range Interpretation Comments Globulin (test code = 82217-4) 3.4 g/dL 2.4-3.5 [facility])Albumin/Globulin [Mass Ratio] in Serum or [id number] 02:49:00 Test Item Value Reference Range Interpretation Comments Albumin/Globulin Ratio (test code = 1.1 g/dL 1.2-2.2 1759-0) [facility])Alkaline phosphatase [Enzymatic activity/volume] in Serum or [id number] 02:49:00 Test Item Value Reference Range Interpretation Comments Alkaline Phosphatase (test code = 75 U/L 40-110 6768-6) [facility])Serum or plasma aspartate aminotransferase measurement (enzymatic activity/volume)2020-10-02 02:49:00 Test Item Value Reference Range Interpretation Comments Aspartate Amino Transf (AST/SGOT) 16 U/L 5-34 (test code = 1920-8) [facility])Serum or plasma alanine aminotransferase measurement without P-5'-P (enzymatic [id number] 02:49:00 Test Item Value Reference Range Interpretation Comments Alanine Aminotransferase (ALT/SGPT) 10 U/L 8-55 (test code = 1744-2) [facility])Serum or plasma lipase measurement (enzymatic activity/volume)2020-10-02 02:49:00 Test Item Value Reference Range Interpretation Comments Lipase (test code = 3040-3) 31 U/L 8-78 [facility])HCG ur [id number] 02:37:00 Test Item Value Reference Range Interpretation Comments Urine Test (test code = Negative Negative 6-3) [facility])Specific gravity of Urine by Refractometry [id number] 02:37:00 Test Item Value Reference Range Interpretation Comments Urine Specific [place] (test code = 1.021 1.002-1.036 91788-7) [facility])Color of Urine by [id number] 02:37:00 Test Item Value Reference Range Interpretation Comments Urine Color (test code = Light-Yellow Yellow 29486-9) [facility])Urine clarity by refractometry automated 2020-10-02 02:37:00 Test Item Value Reference Range Interpretation Comments Urine Clarity (test code = 70665-5) Clear Clear [facility])Urine pH measurement by automated test strip 2020-10-02 02:37:00 Test Item Value Reference Range Interpretation Comments Urine pH (test code = 97619-5) 5.0 5.0-9.0 [facility])Urine leukocyte esterase detection by automated test [id number] 02:37:00 Test Item Value Reference Range Interpretation Comments Urine Leukocyte Esterase Negative Paty/uL Negative (test code = 71668-5) [facility])Nitrite [Presence] in Urine by Test strip 2020-10-02 02:37:00 Test Item Value Reference Range Interpretation Comments Urine Nitrite (test code = 5802-4) Negative Negative [facility])Urine protein measurement by automated test strip (mass/volume)2020-10-02 02:37:00 Test Item Value Reference Range Interpretation Comments Urine Protein (test code = Negative mg/dL Neg-Trace 07616-5) [facility])Glucose [Moles/volume] in Urine by Test strip 2020-10-02 02:37:00 Test Item Value Reference Range Interpretation Comments Urine Glucose (UA) (test code = Normal mg/dL Negative 82031-6) [facility])Urine ketones measurement by automated test strip (mass/volume)2020-10-02 02:37:00 Test Item Value Reference Range Interpretation Comments Urine Ketones (test code = Negative mg/dL Negative 35578-9) [facility])Urine urobilinogen measurement (units/volume) by test [id number] 02:37:00 Test Item Value Reference Range Interpretation Comments Urine Urobilinogen (test code = Normal mg/dL Less than 2 44652-1) [facility])Urine total bilirubin detection by automated test [id number] 02:37:00 Test Item Value Reference Range Interpretation Comments Urine Bilirubin (test code = Negative Negative 57474-1) [facility])Urine hemoglobin detection by automated test [id number] 02:37:00 Test Item Value Reference Range Interpretation Comments Urine Blood (test code = 86506-8) Negative Negative [facility])US Gallbladder RUQ [facility] BRYANName: GISEL KATHLEEN : 1990 [facility] Name: GISEL KATHLEEN [id number] Phys: [place] [address] : 1990 Age: 30 SEX:F [phone] Exam Date: 10/02/20 Status: DEP ER Acct: [id number] Loc: ERS Pt Unit #: [id number] Report #: [id number] CC: Vishal Millan ULTRASOUND REPORT Order # Category/Exam [id number] ULT/US Gallbladder RUQ ([id number]): . Results PRELIMINARY REPORT/[facility]/EMERGENCY AFTER HOURS [...] Lauren West MD Oct 02, 2020 4:03:27AM ELECTRICAL PROSPECTING SUPERVISOR This report is intended for review by the ordering physician only, in accordance of law.If you receive this report in error, please call [facility] at [phone]. FINALREPORT Final report by Dr. Johnson Emergency after-hours study ULTRASOUND ABDOMEN LIMITED: (RIGHT UPPER QUADRANT) DATE: 10/02/2020 HISTORY: 30-year-old female with right upper quadrant abdominal pain FINDINGS: Agree with preliminary report by [facility]. IMPRESSION: 1) Positive for cholelithiasis: 15 x 7 mm gallstone in gallbladder neck. Distended lumen. Rep ortedly positive sonographic Oscar sign, questionable for acute cholecystitis. 2) Two moderately large solid hepatic masses. One of them is up to 5.6 cm. Recommend multiphase MRIof abdomen, liver mass protocol, with and without contrast. Transcribed Date/Time: 10/02/2020 8:52 AM Reported By: David Johnson MD Electronically Signed Date/Time: 10/02/20 0855 Technologist: EMELI Dictated Date/Time: 10/02/20 0822 Transcribed Date/Time:
[2022-04-15 18:27] LABS: Protime INR 1.04
[2022-04-15 18:35] LABS: Absolute Lymphocytes (CBC) 2.1 K/uL (0.7-4.9); Hematocrit 42.5 % (36.0-45.0); Lymphocytes % 32.6 % (15.3-44.8); MCV 82.3 fL (80-100); MPV 10.1 fL (7.6-11.3); RBC Red Blood Cell Count 5.16 M/uL (3.86-4.86)
[2022-04-15 18:40] LABS: ALT/SGPT 31 U/L (12-78); AST/SGOT 44 U/L (15-37); Albumin 4.2 g/dL (3.4-5.0); Alkaline Phosphatase 58 U/L (45-117); BUN Blood Urea Nitrogen 13 mg/dL (7-18); Bicarbonate 24 mmol/L (21-32); Bilirubin Direct 0.2 mg/dL (0-0.2); Bilirubin Total 0.6 mg/dL (0.2-1.0); Glomerular Filtration Rate 92 ml/min (=/>90); Glucose Level 92 mg/dL (74-106); Protein, Total 8.2 g/dL (6.4-8.2); Sodium Level 141 mmol/L (136-145)
--- NOTE | 2022-04-15 21:36 | ER ---
Nurse's Notes [facility] Name: Prachi Horne Age: 31 yrs Sex: Female : 1990 Arrival Date: 04/15/2022 Time: 17:49 Bed 2 Private MD: Diagnosis: Altered mental status, unspecified Presentation: 04/15 17:57 Chief complaint: EMS states: patient was at our intermediate and and ingested an unknown amount bm7 of an unknown substance and no one is sure exactly what time. Not able to obtain a history due to patient's altered status. Coronavirus screen: At this time, unable to obtain information related to travel outside the [place] Ebola Screen: Patient negative for fever greater than or equal to 101.5 degrees Fahrenheit, and additional compatible Ebola Virus Disease symptoms. Initial Sepsis Screen: Does the patient meet any 2 criteria? RR > 20 per min. Altered Mental Status. Does the patient have a suspected source of infection? No. Patient's initial sepsis screen is negative. Risk Assessment: Do you want to hurt yourself or someone else? Unable to obtain. Onset of symptoms is unknown. Care prior to arrival: IV initiated. pt pulled out IV to LAC en route. 17:57 Method Of Arrival: EMS: [facility] bm7 17:57 Acuity: FLORES 2 bm7 Triage Assessment: 18:00 General: Appears uncomfortable, slender, unkempt, Behavior is anxious, restless, bm7 uncooperative. Pain: Denies pain. EENT: Oral mucosa is moist. Neuro: Level of Consciousness is awake, alert, confused, Oriented to place, Telemarketer are equal bilaterally Gait is unsteady, Speech is slurred, Pupils are dilated. Cardiovascular: No deficits noted. Respiratory: No deficits noted. GI: No deficits noted. No signs and/or symptoms were reported involving the gastrointestinal system. : No deficits noted. No signs and/or symptoms were reported regarding the genitourinary system. Derm: Skin is intact, Skin is clammy, Skin temperature is hot. Musculoskeletal: No deficits noted. No signs and/or symptoms reported regarding the musculoskeletal system. 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 - Social history:: Smoking status: unknown. - Code Status:: unknown. Screenin:26 Abuse screen: Denies threats or abuse. Denies injuries from another. Nutritional ph screening: No deficits noted. Tuberculosis screening: No symptoms or risk factors identified. Fall Risk No fall in past 12 months (0 pts). Secondary diagnosis (15 points) drug intoxication. IV access (20 points). Ambulatory Aid- None/Bed Rest/Nurse Assist (0 pts). Gait- Impaired (20 pts.). Mental Status- Overestimates/Forgets Limitations (15 pts.). Total Martínez Fall Scale indicates High Risk Score (45 or more points). Fall prevention measures have been instituted. Side Rails Up X 2 Placed Close to Nursing Station Frequent Obs/Assessments Occuring As available patient and family educated on Fall Prevention Program and Strategies. Assessment: 18:21 Reassessment: Pt noted to be restless, writhing around w/ eyes rolling back, attempting ph to remove monitoring equipment and stand, needing constant reminders to stay in bed. General: Behavior is drowsy, restless, uncooperative. Pain: Unable to use pain scale. Patient is disoriented. FLACC scale score is 0 out of 10. Neuro: Level of Consciousness is confused, obtunded, Oriented to person. Cardiovascular: Capillary refill < 3 seconds in bilateral fingers Patient's skin is warm and dry. Respiratory: Airway is patent Respiratory effort is even, unlabored, Respiratory pattern is regular, symmetrical. GI: Abdomen is flat. Derm: Skin is diaphoretic, Skin is pink, warm \T\ dry. Bruising that is bright red, on bilateral wrists. Musculoskeletal: Circulation, motion, and sensation intact. Range of motion: intact in all extremities. 19:06 Reassessment: Patient appears in no apparent distress at this time. Patient and/or ph family updated on plan of care and expected duration. Pain level reassessed. Accompanied pt to restroom, pt unable to urinate at this time. 19:45 General: ambulated pt to bathroom. pt attempted to provide urine sample. pt unsteady as6 gait, swaying while walking. ambulated pt back to room to lay down. 19:47 Respiratory: Respiratory effort is even, unlabored. as6 21:38 General: pt verbalizes desire to leave .pt is restless. Donovan notified. AAOX4.. aa9 Vital Signs: 17:57 BP 122 / 82; Pulse 118; Resp 24; Temp 99.5(TE); Pulse Ox 99% on R/A; Weight 54.43 kg bm7 (R); Height 5 ft. 1 in. (154.94 cm) (R); 19:00 BP 135 / 97; Pulse 110; Resp 22; Pulse Ox 99% on R/A; bm7 17:57 Body Mass Index 22.67 (54.43 kg, 154.94 cm) bm7 ED Course: 17:49 Patient arrived in ED. ph 17:49 Elia Man PA is PHCP. [facility] 17:49 Nallely Wagner is Attending Physician. [facility] 18:00 Triage completed. [facility] 18:00 Arm band placed on right wrist. EKG completed in triage. Results shown to MD. [facility] 18:09 Initial lab(s) drawn, by dc, sent to lab. Inserted saline lock: 22 gauge in right ph antecubital area, using aseptic technique. Blood collected. 18:21 Melinda Castellano, RN is Primary Nurse. ph 18:27 Patient has correct armband on for positive identification. Placed in gown. Bed in low ph position. Side rails up X2. Client placed on continuous cardiac and pulse oximetry monitoring. NIBP monitoring applied. 21:12 Pt. is pacing. Appears restless. kl 21:39 No provider procedures requiring assistance completed. IV discontinued, intact, aa9 bleeding controlled, No redness/swelling at site. Pressure dressing applied. Administered Medications: No medications were administered Medication: 18:09 VIS not applicable for this client. ph Outcome: 21:35 Discharge ordered by . lenny 21:40 Discharged to home ambulatory. aa9 21:40 Condition: stable 21:40 Discharge instructions given to patient. 21:42 Patient left the ED. aa9 Signatures: Martha Hugo RN Elia Washington PA PA [facility] Melinda Castellano RN RN Bernadette Hall, AVELINO YOU [facility] Dean Ma RN RN as6 Caba, Elizabeth, RN RN aa9 Corrections: (The following items were deleted from the chart) 18:28 18:21 Reassessment: Pt noted to be restless, writhing around w/ eyes rolling back, ph attempting to stand and needing constant reminders to stay in bed ph 21:42 21:38 General: pt verbalizes desire to leave. Donovan notified. AAOX4. . aa9 aa9
--- NOTE | 2022-04-15 21:37 | EDPHYS ---
Physician Documentation [facility] Name: Prachi Horne Age: 31 yrs Sex: Female : 1990 Arrival Date: 04/15/2022 Time: 17:49 Bed 2 Private MD: ED Physician Nallely Wagner HPI: 04/15 17:50 This 31 yrs old Female presents to ER via EMS with complaints of Altered m mental status. 17:50 Onset: The symptoms/episode began/occurred acutely, today. Possible causes: drug use. jmm Associated signs and symptoms: Pertinent positives: Pertinent negatives: abdominal pain, chest pain. It is unknown whether or not the patient has had similar symptoms in the past. Is a 31-year-old female female with history of bipolar, depression the presents emerged department with confusion following ingestion of an unknown substance. Patient admits to taking Xanax. 04/16 00:00 The patient presents with confusion. 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 - Social history:: Smoking status: unknown. - Code Status:: unknown. ROS: 17:50 Constitutional: Negative for fever, chills, and weight loss, Cardiovascular: Negative jmm for chest pain, palpitations, and edema, Respiratory: Negative for shortness of breath, cough, wheezing, and pleuritic chest pain, Abdomen/GI: Negative for abdominal pain, nausea, vomiting, diarrhea, and constipation. 17:50 All other systems are negative. Exam: 17:50 Head/Face: atraumatic. Eyes: EOMI, no conjunctival erythema appreciated ENT: Moist jmm Mucus Membranes Neck: Trachea midline, Supple Chest/axilla: Normal chest wall appearance and motion. Cardiovascular: Regular rate and rhythm. No edema appreciated Respiratory: Normal respirations, no respiratory distress appreciated Abdomen/GI: Non distended Back: Normal ROM Skin: General appearance color normal MS/ Extremity: Moves all extremities, no obvious deformities appreciated, no edema noted to the lower extremities Psych: Behavior is normal, Mood is normal, Patient is cooperative and pleasant 17:50 Constitutional: The patient appears awake, anxious. 17:50 Neuro: Orientation: to Vital Signs: 17:57 BP 122 / 82; Pulse 118; Resp 24; Temp 99.5(TE); Pulse Ox 99% on R/A; Weight 54.43 kg bm7 (R); Height 5 ft. 1 in. (154.94 cm) (R); 19:00 BP 135 / 97; Pulse 110; Resp 22; Pulse Ox 99% on R/A; bm7 17:57 Body Mass Index 22.67 (54.43 kg, 154.94 cm) bm7 MDM: 17:50 Patient medically screened. [facility] 21:35 Data reviewed: vital signs, nurses notes. Counseling: I had a detailed discussion with tony the patient and/or guardian regarding: the historical points, exam findings, and any diagnostic results supporting the discharge/admit diagnosis, lab results, radiology results, the need for outpatient follow up, to return to the emergency department if symptoms worsen or persist or if there are any questions or concerns that arise at home. 21:35 ED course: Patient requested to leave. Currently alert and oriented x3 in the ED.. [facility] 04/15 17:50 Order name: Acetaminophen; Complete Time: 18:53 [facility] 04/15 17:50 Order name: Basic Metabolic Panel; Complete Time: 18:53 [facility] 04/15 17:50 Order name: CBC with Diff; Complete Time: 18:53 [facility] 04/15 17:50 Order name: ETOH Level; Complete Time: 18:53 [facility] 04/15 17:50 Order name: Hepatic Function; Complete Time: 18:53 [facility] 04/15 17:50 Order name: PT-INR; Complete Time: 18:28 [facility] 04/15 17:50 Order name: Ptt, Activated; Complete Time: 18:28 [facility] 04/15 17:50 Order name: Salicylate; Complete Time: 18:53 [facility] 04/15 17:50 Order name: EKG - Nurse/Tech; Complete Time: 18:30 [facility] 04/15 17:50 Order name: IV Saline Lock; Complete Time: 18:56 [facility] 04/15 17:50 Order name: Labs collected and sent; Complete Time: 18:56 [facility] 04/15 17:50 Order name: Suicide Screening (Nu); Complete Time: 18:56 jm Administered Medications: No medications were administered Disposition Summary: 04/15/22 21:35 Discharge Ordered Location: Home [facility] Condition: Stable jmm Diagnosis - Altered mental status, unspecified jmm Followup: [facility] - With: Private Physician - When: 2 - 3 days - Reason: Recheck today's complaints, Continuance of care, Re-evaluation by your physician Forms: - Medication Reconciliation Form [facility] - Thank You Letter [facility] - Antibiotic Education [facility] - Prescription Opioid Use [facility] Signatures: Dispatcher [employer] EDElia Neff PA PA jmm McCarthy, Brittany, RN RN bm7
[2022-04-15 22:27] VITALS: TEMP 99.5; O2SAT 99
[2022-04-15 22:29] VITALS: BP 135/97
--- NOTE | 2022-04-16 09:26 | EKG ---
Test Date: 2022-04-15 Test Time: 18:12:37 Preboarder: EM MEASUREMENT RESULTS: Intervals: Rate: 111 SC: 136 QRSD: 74 QT: 338 QTc: 459 [place]: P: 80 SC: 136 QRS: 118 T: 8 INTERPRETIVE STATEMENTS: Sinus tachycardia Right axis deviation Nonspecific T wave abnormality Abnormal ECG No previous ECG available for comparison Electronically Signed On 04-16-22 09:24:47 CDT by Abdirizak Paez
== END 2022-04-15 21:42 | disposition home or self-care (01) ==
LOC: ER 17:46
DX: R41.82 Altered mental status, unspecified (principal); F31.9 Bipolar disorder, unspecified
CPT/HCPCS: 36415; 80048; 80076; 80320; 80329; 85025; 85610; 85730; 93005; 99284

== ENCOUNTER 2022-04-15 23:29 | Emergency (ER) | payer SELFPAY ==
--- OUTSIDE RECORDS SUMMARY | 2022-04-15 23:33 | XMS REPORT | Continuity of Care Document ---
:1990 Author Organization [facility] t Address [address] [place] [address] Care Team Providers Name Role Phone KRISTEN CAMPOS Primary Care Physician Unavailable Kyrie CAMPOS Attending Clinician Unavailable Andres CORRIGAN C Attending Clinician Guillermo Valentine Attending Clinician Unavailable Provider, Temp Attending Clinician Unavailable Indigo OG, L Attending Clinician Payers Payer Name Policy Type Policy Number Effective Date Expiration Date Robb sam [id number] 2021 00:00:00 Problems Condition Condition Condition Status Onset Resolution Last Treating Co mments Source Name Details Category Date Date Treatment Clinician Date Nexplanon Nexplanon Disease Active Uni vers removal removal 4-13 ity of 00:00: [place] 00 Medical Branch Nexplanon Nexplanon Disease Active Uni vers insertion insertion 4-13 ity of 00:00: [place] 00 Medical Branch Other Other Disease Active Univers general general 4-07 [place] and advice 00 Fl dical for for Branch contracept contracept jyothi jyothi management management History of History of Disease Active Overview : Univers drug abuse drug abuse 8-17 Formattin ity of 00:00: g of this [place] 00 note Medical might be Branch different from the original. Clean 4 months since rehab Problem Condition [facility] [place] (Rajeev) Allergies, Adverse Reactions, Alerts Allergy Allergy Status Severity Reaction(s) Onset Inactive Treating Comm ents Source Name Type Date Date Clinician NO KNOWN Drug Active [facility] ALLERGIE Class ity of [facility] Social History Social Habit Start Date Stop Date Quantity Comments Source Exposure to Not sure [facility] SARS-CoV-2 [facility] (event) Alcohol intake 2022-01-03 2022-01-03 0 /d [facility] 00:00:00 00:00:00 [facility] Tobacco Comment 2021-12-28 2021-12-28 vapes daily [facility] 00:00:00 00:00:00 [facility] [place] Tobacco use and 2016-05-09 2016-05-09 Current user [facility] exposure 00:00:00 00:00:00 [facility] Sex Assigned At [birth year] Female [facility]:00 00:00:00 [place] (Rajeev) Smoking Status Start Date Stop Date Source Unknown if ever smoked [facility] Te[facility] (Rajeev) Never smoker [facility] Medications Ordered Filled Start Stop Current Ordering Indication Dosage Frequency Signature Comments Components Source Medication Medication Date Date Medication? Clinician (SIG) Name Name etonogestre 2021- No [id number] 68mg 68 mg, Univers L 01-03 Subdermal, ity of (NEXPLANON) 15:15: 14:14 ONCE NOW, [place] implant 68 00 :00 1 dose, On Med ical mg [facility] Branch 01/03/22 at 1015, Routine
Use approved by: TILE ERECTOR etonogestre 2021- No [id number] 68mg Univers L 01-03 ity of (NEXPLANON) 15:15: 14:14 [place] implant 68 00 :00 Medical Branch CYANOCOBALA 2021- No 1{tbl} Take 1 U nivers MIN, 12-28 tablet by ity of VITAMIN 09:24: 00:00 mouth. [place] B-12, 54 :00 Medical (VITAMIN Branch B-12 ORAL) buPROPion 2021- No 10mg Take 10 mg U nivers XL 12-28 by mouth ity of (WELLBUTRIN 09:24: 00:00 daily. [place] as XL) 150 mg 51 :00 Medical 24 hr Branch tablet mirtazapine No 15mg Take 15 mg Univers (REMERON) 12-28 by mouth ity o f 15 mg 09:24: 00:00 at [place] tablet 51 :00 bedtime. Medical Branch No [id number] 1{tbl} Take 1 Univers multivitami 05-09 tablet by it y of n ( 00:00[place] VIT[place] 00 :00 daily. Medical tablet Branch ferrous No [id number] 325mg Take 1 Univers sulfate 325 05-09 tablet by it y of mg (65 mg 00:00: 00:00 mouth [place] iron) EC 00 :00 daily. Medical tablet Branch Immunizations Ordered Filled Immunization Date Status Comments [facility] e Immunization Name Name HPV9 2021-12-28 Completed University 00:00:00 [facility] Influenza Virus 2021-12-28 Completed Universit y of Vaccine Quad .5 mL 00:00:00 [facility] IM 6+ MO Branch HPV9 2021-12-28 Completed University of 00:00:00 [facility] Influenza Virus 2021-12-28 Completed Universit y of Vaccine Quad .5 mL 00:00:00 [facility] IM 6+ MO Branch PPD (TB) 2017-01-16 Completed University 00:00:00 [facility] PPD (TB) 2017-01-16 Completed [facility] 00:00:00 [facility] Vital Signs Vital Name Observation Time Observation Value Comments Source Systolic blood 2022-01-03 13:37:00 136 mm[Hg] Univer sity of pressure [facility] Diastolic blood 2022-01-03 13:37:00 74 mm[Hg] Unive rsity of pressure [facility] Heart rate 2022-01-03 13:37:00 54 /min [facility] Body temperature 2022-01-03 13:37:00 35.72 Gretchen [facility] Respiratory rate 2022-01-03 13:37:00 18 /min [facility] Body height 2022-01-03 13:37:00 154.9 cm Universi ty [facility] Body weight 2022-01-03 13:37:00 58.684 kg Universi [facility] BMI 2022-01-03 13:37:00 24.45 kg/m2 Universi [facility] Systolic blood 2021-12-28 14:17:00 123 mm[Hg] Univer sity of [facility] Diastolic blood 2021-12-28 14:17:00 81 [facility]Hg[facility] 2021-12-28 14:17:00 55 /min [facility] Body temperature 2021-12-28 14:16:00 36.06 Gretchen [facility] Respiratory rate 2021-12-28 14:16:00 18 /min [facility] Body height 2021-12-28 14:16:00 154.9 cm Universi [facility] Body weight 2021-12-28 14:16:00 58.968 kg [facility] BMI 2021-12-28 14:16:00 24.56 kg/m2 [facility] Procedures Procedure Date / Time Performing Clinician Source Performed POCT TEST 2022-01-03 13:46:00 Kristen Campos [facility] HIV 1/2 AG-AB WITH 2021-12-28 15:10:00 Kristen Campos [facility] REFLEX [facility] PAP SMEAR-LIQUID 2021-12-28 15:10:00 Kristen Campos [facility] BASED-CP [facility] Branch GALV ONLY - [place] 2021-12-28 15:10:00 [facility]IG[facility] GARDASIL 9 (HPV 9V) 2021-12-28 14:43:46 Kristen Campos [facility] VACCINE [facility] FLU VACC ([id number]), 2021-12-28 14:38:00 [facility], QUAD Medical Bran ch US Gallbladder RUQ 2020-10-02 02:45:[address] [facility] [place] ([place]) Encounters Start End Encounter Admission Attending Care Care Encounter Source Date/Time Date/Time Type Type Clinicians Facility Department ID 2022-01-17 2022-01-17 Outpatient R AKINSIPE, [facility] [id number] Univers 08:15:00 08:15:00 KRISTEN ity o [facility] 2022-01-17 2022-01-17 Outpatient R AKINSIPE, [facility] [id number] Univers 08:15:00 08:15:00 KRISTEN [id number] [facility]y [facility] 2022-01-17 2022-01-17 Outpatient R AKINSIPE, [facility] [id number] Univers 08:15:00 08:15:00 KRISTEN ity o [facility] 2022-01-03 2022-01-03 Outpatient R AKINSIPE, [facility] [id number] Univers 08:30:00 09:11:06 KRISTEN ity o [facility] 2022-01-03 2022-01-03 Office Akins[place], [facility] [id number] Univers 08:30:00 09:11:06 Visit Kristen C TILE ERECTOR [id number] ity of [facility] [id number] [place] as MATERNAL [phone] [facility] ical & CHILD [address] [place] [address] 2022-01-03 2022-01-03 Outpatient R AKINSIPE, [facility] [id number] Univers 08:30:00 08:30:00 KRISTEN ity o [facility] 2021-12-28 2021-12-28 Outpatient R AKINSIPE, [facility] [id number] Univers 09:00:00 10:13:45 KRISTEN ity o [facility] 2021-12-28 2021-12-28 Office Akins[place], [facility] [id number] Univers 09:00:00 10:13:45 Visit Kristen C TILE ERECTOR [id number] ity of [facility] [id number] [place] as MATERNAL [phone] [facility] ical & CHILD [address] [place] [address] 2020-10-02 2020-10-02 Departed ER Meme, [facility] [place] [id number] [facility] 02:07[facility]00 04:27:00 Emergency [facility] [address] [facility] Kelvin ph CY SERVICES (Gorge an) 2020-10-02 2020-10-02 Emergency ER Provider, [facility] [id number] 02:07:00 02:07:00 Express -[id number] [facility] Zane [place] 2020-03-23 2020-03-23 [facility] AISHA Sood PAM [id number] 13:23:00 23:59:00 Encounter Daniel MARSH [id number] [facility] [id number] 2017-05-10 2017-05-10 Outpatient [facility] [id number] [place] 00:00:00 00:00:00 Health 2017-03-28 2017-03-28 Outpatient [facility] [id number] [place] 00:00:00 00:00:00 [facility] 2017-03-12 2017-03-12 Outpatient [facility] [id number] [place] 11:12:09 11:12:09 Health 2017-03-06 2017-03-06 Outpatient [facility] [id number] [place] 00:00:00 00:00:00 [facility] 2017-03-05 2017-03-05 Outpatient [facility] [id number] [place] 00:00:00 00:00:00 Health 2017-02-27 2017-02-27 Outpatient [facility] [id number] [place] 13:56:11 13:56:11 Health 2017-02-15 2017-02-15 Outpatient [facility] [id number] [place] 10:01:10 10:01:10 Health 2017-02-13 2017-02-13 Outpatient [facility] [id number] Ly 09:28:41 09:28:41 Health 2017-02-07 2017-02-07 Outpatient [facility] [id number] Ly 13:24:53 13:24:53 Health 2017-01-30 2017-01-30 Outpatient [facility] [id number] Ly 14:37:13 14:37:13 Health Results Test Description Test Time Test Comments Results Result Comments Source POCT TEST 2022-01-03 13:46:00 Test Item Value Reference Range Interpretation Comme nts POCT PREG (test code = 1605) Negative On board controls acceptable with C Line (test code = 3574) Yes POCT PREG LOT # (test code = 3575) POCT PREG TEST DATE (test code = 3576) [facility] [place] [id number] 15:23:00 Test Item Value Reference Range Interpretation Comments Syphilis IgG/IgM (test Non-reactive Non-reactive code = 38891-3) UTE (test code = UTE) Non-reactive - No serologic evidence of T. pallidum infection. Cannot exclude incubating or early syphilis. Submit a second specimen in 2-4 weeks if syphilis is clinically suspected. Equivocal - Further testing to follow. Reactive - Further testing to follow. Lab Interpretation (test Normal code = 37472-2) [facility]-AB WITH [id number] 06:04:13 Test Item Value Reference Range Interpretation Comments HIV Negative Negative Semi-quantitative (test code = 82918-2) UTE (test code = Non-reactive for HIV-1 UTE) antigen and HIV-1/HIV-2 antibodies. ?No laboratory evidence of HIV infection. ?Repeat in 2-4 weeks if acute HIV infection is suspected. [facility] 03:22:00 Test Item Value Reference Range Interpretation [...] code = BASO#) 0.1 thou/uL 0.0-0.2 N [id number] 03:19:00 Test Item Value Reference Range Interpretation [...] 10 U/L 8-55 N code = ALT) [id number] 03:19:00 Test Item Value Reference Range Interpretation Comments Chemistry (test code = LIP) 31 U/L 8-78 N [id number] 02:51:00 Test Item Value Reference Range Interpretation [...] Negative Negative UABLD) Urine Source: Urine Clean [id number] 02:51:00 Test Item Value Reference Range Interpretation [...] (test 1.021 1.002-1.036 N code = PREGUSG) Albumin/Globulin [Mass Ratio] in Serum or [id number] 02:49:00 Test Item Value Reference Range Interpretation Comments Albumin/Globulin Ratio (test code = 1.1 g/dL 1.2-2.2 1759-0) [facility])Alkaline phosphatase [Enzymatic activity/volume] in Serum or [id number] 02:49:00 Test Item Value Reference Range Interpretation Comments Alkaline Phosphatase (test code = 75 U/L 40-110 6768-6) [facility])Serum or plasma aspartate aminotransferase measurement (enzymatic activity/volume)2020-10-02 02:49:00 Test Item Value Reference Range Interpretation Comments Aspartate Amino Transf (AST/SGOT) 16 U/L 5-34 (test code = 1920-8) [facility])Serum or plasma alanine aminotransferase measurement without P-5'-P (enzymatic [id number] 02:49:00 Test Item Value Reference Range Interpretation Comments Alanine Aminotransferase (ALT/SGPT) 10 U/L 8-55 (test code = 1744-2) [facility])Serum or plasma lipase measurement (enzymatic activity/volume)2020-10-02 02:49:00 Test Item Value Reference Range Interpretation Comments Lipase (test code = 3040-3) 31 U/L 8-78 [facility])Leukocytes [#/volume] in Blood by Automated [id number] 02:49:00 Test Item Value Reference Range Interpretation Comments White Blood Count (test code = 6.4 thou/uL 4.8-10.8 6690-2) [facility]Blood erythrocytes automated count (number/volume)2020-10-02 02:49:00 Test Item Value Reference Range Interpretation Comments Red Blood Count (test code = 4.13 mill/uL 4.20-5.40 789-8) [facility])Blood hemoglobin measurement (mass/volume) 2020-10-02 02:49:00 Test Item Value Reference Range Interpretation Comments Hemoglobin (test code = 718-7) 12.0 g/dL 12.0-16.0 [facility])Automated erythrocyte mean corpuscular volume 2020-10-02 02:49:00 Test Item Value Reference Range Interpretation Comments Mean Corpuscular Volume (test code = 84.0 fL 78.0-98.0 787-2) [facility])Automated erythrocyte mean corpuscular hemoglobin (mass per erythrocyte)2020-10-02 02:49:00 Test Item Value Reference Range Interpretation Comments Mean Corpuscular Hemoglobin (test 29.1 pg 27.0-31.0 code = 785-6) [facility])Automated erythrocyte mean corpuscular hemoglobin concentration measurement (mass/[id number] 02:49:00 Test Item Value Reference Range Interpretation Comments Mean Corpuscular Hemoglobin Concent 34.6 g/dL 32.0-36.0 (test code = 786-4) [facility])Automated erythrocyte distribution width ratio 2020-10-02 02:49:00 Test Item Value Reference Range Interpretation Comments Red Cell Distribution Width (test code 13.5 % 11.5-14.5 = 788-0) [facility])Automated blood platelet count (count/volume) 2020-10-02 02:49:00 Test Item Value Reference Range Interpretation Comments Platelet Count (test code = 190 thou/uL 130-400 777-3) [facility])Automated blood platelet mean [id number] 02:49:00 Test Item Value Reference Range Interpretation Comments Mean Platelet Volume (test code = 10.2 fL 7.4-10.4 99510-7) [facility])Automated blood neutrophils/100 leukocytes 2020-10-02 02:49:00 Test Item Value Reference Range Interpretation Comments Neutrophils % (test code = 770-8) 51.4 % 42.0-75.0 [facility])Lymphocytes/100 leukocytes in Blood by Automated [id number] 02:49:00 Test Item Value Reference Range Interpretation Comments Lymphocytes % (test code = 736-9) 36.7 % 21.0-51.0 [facility])Automated blood monocytes/100 leukocytes 2020-10-02 02:49:00 Test Item Value Reference Range Interpretation Comments Monocytes % (test code = 5905-5) 8.6 % 0.0-10.0 [facility])Automated blood eosinophils/100 leukocytes 2020-10-02 02:49:00 Test Item Value Reference Range Interpretation Comments Eosinophils % (test code = 713-8) 2.1 % 0.0-10.0 [facility])Automated blood basophils/100 leukocytes 2020-10-02 02:49:00 Test Item Value Reference Range Interpretation Comments Basophils % (test code = 706-2) 1.2 % 0.0-1.0 [facility])Blood neutrophils automated count (number/volume)2020-10-02 02:49:00 Test Item Value Reference Range Interpretation Comments Neutrophils # (test code = 751-8) 3.3 thou/uL 1.40-6.50 [facility]Lymphocytes [#/volume] in Blood by Automated [id number] 02:49:00 Test Item Value Reference Range Interpretation Comments Lymphocytes # (test code = 731-0) 2.4 thou/uL 1.20-3.40 [facility])Serum or plasma sodium measurement (moles/volume)2020-10-02 02:49:00 Test Item Value Reference Range Interpretation Comments Sodium Level (test code = 2951-2) 135 mmol/L 136-145 [facility])Blood monocytes automated count (number/volume)2020-10-02 02:49:00 Test Item Value Reference Range Interpretation Comments Monocytes # (test code = 742-7) 0.6 thou/uL 0.11-0.59 [facility])Blood eosinophils automated count (count/volume)2020-10-02 02:49:00 Test Item Value Reference Range Interpretation Comments Eosinophils # (test code = 711-2) 0.1 thou/uL 0.0-0.7 [facility])Automated blood basophil count (count/volume) 2020-10-02 02:49:00 Test Item Value Reference Range Interpretation Comments Basophils # (test code = 704-7) 0.1 thou/uL 0.0-0.2 [facility])Serum or plasma potassium measurement (moles/volume)2020-10-02 02:49:00 Test Item Value Reference Range Interpretation Comments Potassium Level (test code = 4.3 mmol/L 3.5-5.1 2823-3) [facility])Serum or plasma chloride measurement (moles/volume)2020-10-02 02:49:00 Test Item Value Reference Range Interpretation Comments Chloride Level (test code = 107 mmol/L 98-107 5-0) [facility])Serum or plasma carbon dioxide, total measurement (moles/volume)2020-10-02 02:49:00 Test Item Value Reference Range Interpretation Comments Carbon Dioxide Level (test code = 22 mmol/L -29 2028-05) [facility])Serum or plasma anion [id number] 02:49:00 Test Item Value Reference Range Interpretation Comments Anion Gap (test code = 09408-9) 10 mmol/L 10-20 [facility])Serum or plasma urea nitrogen measurement (mass/volume)2020-10-02 02:49:00 Test Item Value Reference Range Interpretation Comments Blood Urea Nitrogen (test code = 10 mg/dL 7.0-18.7 3094-0) [facility])Serum or plasma creatinine measurement (mass/volume)2020-10-02 02:49:00 Test Item Value Reference Range Interpretation Comments Creatinine (test code = 2160-0) 0.68 mg/dL 0.6-1.1 [facility])Glucose [Mass/volume] in Serum or Plasma 2020-10-02 02:49:00 Test Item Value Reference Range Interpretation Comments Glucose Level (test code = 2345-7) 97 mg/dL 70-105 [facility])Serum or plasma calcium measurement (mass/volume)2020-10-02 02:49:00 Test Item Value Reference Range Interpretation Comments Calcium Level (test code = 02761-2) 8.8 mg/dL 7.8-10.44 [facility])Serum or plasma total bilirubin measurement (mass/volume)2020-10-02 02:49:00 Test Item Value Reference Range Interpretation Comments Total Bilirubin (test code = 0.2 mg/dL 0.2-1.2 1975-2) [facility])Serum or plasma protein measurement (mass/volume)2020-10-02 02:49:00 Test Item Value Reference Range Interpretation Comments Serum Total Protein (test code = 7.1 g/dL 6.0-8.3 2885-2) [facility])Serum or plasma albumin measurement by bromocresol green (BCG) dye binding method ([id number] 02:49:00 Test Item Value Reference Range Interpretation Comments Albumin (test code = 83323-4) 3.7 g/dL 3.5-5.0 [facility])Globulin [Mass/volume] in Serum by calculation 2020-10-02 02:49:00 Test Item Value Reference Range Interpretation Comments Globulin (test code = 71047-6) 3.4 g/dL 2.4-3.5 [facility])HCG ur [id number] 02:37:00 Test Item Value Reference Range Interpretation Comments Urine Test (test code = Negative Negative 6-3) [facility])Specific gravity of Urine by Refractometry [id number] 02:37:00 Test Item Value Reference Range Interpretation Comments Urine Specific [place] (test code = 1.021 1.002-1.036 35133-0) [facility])Color of Urine by [id number] 02:37:00 Test Item Value Reference Range Interpretation Comments Urine Color (test code = Light-Yellow Yellow 67390-7) [facility])Urine clarity by refractometry automated 2020-10-02 02:37:00 Test Item Value Reference Range Interpretation Comments Urine Clarity (test code = 65919-0) Clear Clear [facility])Urine pH measurement by automated test strip 2020-10-02 02:37:00 Test Item Value Reference Range Interpretation Comments Urine pH (test code = 72455-4) 5.0 5.0-9.0 [facility])Urine leukocyte esterase detection by automated test [id number] 02:37:00 Test Item Value Reference Range Interpretation Comments Urine Leukocyte Esterase Negative Paty/uL Negative (test code = 98116-9) [facility])Nitrite [Presence] in Urine by Test strip 2020-10-02 02:37:00 Test Item Value Reference Range Interpretation Comments Urine Nitrite (test code = 5802-4) Negative Negative [facility])Urine protein measurement by automated test strip (mass/volume)2020-10-02 02:37:00 Test Item Value Reference Range Interpretation Comments Urine Protein (test code = Negative mg/dL Neg-Trace 14511-0) [facility])Glucose [Moles/volume] in Urine by Test strip 2020-10-02 02:37:00 Test Item Value Reference Range Interpretation Comments Urine Glucose (UA) (test code = Normal mg/dL Negative 75889-7) [facility])Urine ketones measurement by automated test strip (mass/volume)2020-10-02 02:37:00 Test Item Value Reference Range Interpretation Comments Urine Ketones (test code = Negative mg/dL Negative 96520-3) [facility])Urine urobilinogen measurement (units/volume) by test [id number] 02:37:00 Test Item Value Reference Range Interpretation Comments Urine Urobilinogen (test code = Normal mg/dL Less than 2 94613-1) [facility])Urine total bilirubin detection by automated test [id number] 02:37:00 Test Item Value Reference Range Interpretation Comments Urine Bilirubin (test code = Negative Negative 29495-7) [facility])Urine hemoglobin detection by automated test [id number] 02:37:00 Test Item Value Reference Range Interpretation Comments Urine Blood (test code = 82145-3) Negative Negative [facility])US Gallbladder RUQ [facility] BRYANName: GISEL KATHLEEN : 1990 [facility]: GISEL KATHLEEN [id number] [address] Phys: [place] [address] : 1990 Age: 30 SEX:F [phone] Exam Date: 10/02/20 Status: DEP ER Acct: [id number] Loc: ERS Pt Unit #: [id number] Report #: [id number] CC: Vishal Millan ULTRASOUND REPORT Order # Category/Exam [id number] ULT/US Gallbladder RUQ ([id number]): . Results PRELIMINARY REPORT/[facility]/EMERGENCY AFTER HOURS [...] Lauren West MD Oct 02, 2020 4:03:27AM WATCHMAKER APPRENTICE This report is intended for review by the ordering physician only, in accordance of law.If you receive this report in error, please call [facility] at [phone]. FINALREPORT Final report by Dr. Johnson Emergency [...] MD Electronically Signed Date/Time: 10/02/20 0855 Technologist: [email or web address] Dictated Date/Time: 10/02/20 0822 Transcribed Date/Time:
[2022-04-16 00:15] LABS: Absolute Lymphocytes (CBC) 0.9 K/uL (0.7-4.9); Hematocrit 38.7 % (36.0-45.0); Lymphocytes % 13.1 % (15.3-44.8); MCV 81.1 fL (80-100); MPV 10.1 fL (7.6-11.3); RBC Red Blood Cell Count 4.77 M/uL (3.86-4.86)
[2022-04-16 00:16] LABS: Protime INR 1.09
[2022-04-16 00:30] LABS: ALT/SGPT 30 U/L (12-78); AST/SGOT 42 U/L (15-37); Alkaline Phosphatase 55 U/L (45-117); BUN Blood Urea Nitrogen 14 mg/dL (7-18); Bicarbonate 24 mmol/L (21-32); Bilirubin Direct 0.1 mg/dL (0-0.2); Bilirubin Total 0.5 mg/dL (0.2-1.0); Glomerular Filtration Rate 80 ml/min (=/>90); Glucose Level 108 mg/dL (74-106); Potassium 2.9 mmol/L (3.5-5.1); Protein, Total 7.6 g/dL (6.4-8.2); Sodium Level 143 mmol/L (136-145)
[2022-04-16 02:30] LABS: Urine Blood Trace-lysed (Negative); Urine Glucose Negative (Negative); Urine Protein 2+ (Negative); Urine Specific Gravity >=1.030 (1.005-1.030); Urine pH 5.5 (5.0-7.0)
[2022-04-16 02:56] LABS: Barbiturates NEGATIVE (NEGATIVE); Benzodiazepines POSITIVE (NEGATIVE); Cocaine NEGATIVE (NEGATIVE); METHAMPHETAM POSITIVE (NEGATIVE); Methadone NEGATIVE (NEGATIVE); Opiates NEGATIVE (NEGATIVE); Phencyclidine NEGATIVE (NEGATIVE); THC Cannibis POSITIVE (NEGATIVE)
[2022-04-16] MEDS ORDERED: POTASSIUM CL SA 10 MEQ TAB PO ONE (03:13)
--- NOTE | 2022-04-16 05:59 | ER ---
Nurse's Notes [facility] Name: Prachi Horne Age: 31 yrs Sex: Female : 1990 Arrival Date: 04/15/2022 Time: 23:30 Bed 4 Private MD: Diagnosis: Adverse effect of amphetamines;Adverse effect of benzodiazepines;Cannabis abuse;UTI/ Urinary tract infection, site not specified Presentation: 04/15 23:40 Chief complaint: EMS states: [facility]. Coronavirus screen: At this time, unable to obtain aa9 information related to travel outside the [place] At this time, the client does not indicate any symptoms associated with coronavirus-19. Ebola Screen: Unable to complete the Ebola screening because:. Initial Sepsis Screen: Does the patient meet any 2 criteria? No. Patient's initial sepsis screen is negative. Does the patient have a suspected source of infection? No. Patient's initial sepsis screen is negative. Risk Assessment: Do you want to hurt yourself or someone else? Patient reports no desire to harm self or others. Onset of symptoms was April 15, 2022. 23:40 Method Of Arrival: EMS: [facility] aa9 23:40 Acuity: FLORES 4 aa9 Triage Assessment: 23:43 General: Appears in no apparent distress. comfortable, Behavior is anxious, restless. aa9 Pain: Denies pain. Historical: - Allergies: 23:41 Unable to obtain; aa9 - PMHx: 23:41 Anxiety; Bipolar disorder; Depression; aa9 - Immunization history:: unable to obtain. - Social history:: Smoking status: unknown. Screenin:42 Abuse screen: Denies threats or abuse. Denies injuries from another. Nutritional aa9 screening: No deficits noted. Tuberculosis screening: No symptoms or risk factors identified. Fall Risk None identified. Assessment: 23:45 General: Appears in no apparent distress. comfortable, Behavior is anxious, drowsy, aa9 restless, pt states to have taken Xanax earlier today and 4 alcoholic drinks.. Vital Signs: 23:43 BP 124 / 86; Pulse 96; Resp 16 S; Pulse Ox 98% on R/A; Pain 0/10; aa9 04/16 01:46 BP 131 / 106; Pulse 79; Resp 20 S; Pulse Ox 99% on R/A; as6 04:27 BP 112 / 81; Pulse 76; Resp 18 S; Pulse Ox 99% on R/A; as6 ED Course: 04/15 23:30 Patient arrived in ED. ds4 23:38 Renny Garza DO is Attending Physician. ms3 23:40 Elizabeth Caba, RN is Primary Nurse. aa9 23:41 Triage completed. aa9 23:42 Patient has correct armband on for positive identification. Side rails up X2. aa9 04/16 00:02 Inserted saline lock: 20 gauge in right forearm, using aseptic technique. Blood aa9 collected. 02:05 No apparent distress. Resting quietly. Appears to be sleeping. kl 02:33 Urine Drug Screen Sent. aa9 05:58 Hector Barker DO is Referral Physician. ms3 06:16 No provider procedures requiring assistance completed. IV discontinued, intact, aa9 bleeding controlled, No redness/swelling at site. Pressure dressing applied. 06:17 Arm band placed on. aa9 Administered Medications: 03:10 Drug: Potassium Chloride 40 mEq Route: PO; aa9 06:17 Follow up: Response: No adverse reaction aa9 Medication: 06:17 VIS not applicable for this client. aa9 Outcome: 05:58 Discharge ordered by . ms3 06:16 Discharged to home ambulatory. aa9 06:16 Condition: stable 06:16 Discharge instructions given to patient, Instructed on discharge instructions, follow up and referral plans. medication usage, Demonstrated understanding of instructions, follow-up care, medications, Prescriptions given X 1. 06:17 Patient left the ED. aa9 Signatures: Martha Hugo, RN Sagar Mcleod ds4 Renny Garza DO DO ms3 Dean Ma RN RN as6 Elizabeth Caba, AVELINO RN aa9
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
[2022-04-16 06:25] VITALS: O2SAT 99
[2022-04-16 06:27] VITALS: BP 112/81
--- NOTE | 2022-04-16 09:25 | EKG ---
Test Date: 2022-04-16 Test Time: 00:05:47 Leather Leveler: CLIFF MEASUREMENT RESULTS: Intervals: Rate: 87 ND: 138 QRSD: 82 QT: 378 QTc: 454 [place]: P: 74 ND: 138 QRS: 80 T: 36 INTERPRETIVE STATEMENTS: Normal sinus rhythm Possible Left atrial enlargement Borderline ECG No previous ECG available for comparison Electronically Signed On 04-16-22 09:24:38 CDT by Abdirizak Paez
== END 2022-04-16 06:17 | disposition home or self-care (01) ==
LOC: ER 23:29
DX: R41.82 Altered mental status, unspecified (principal); F12.10 Cannabis abuse, uncomplicated; T43.625A Adverse effect of amphetamines, initial encounter; N39.0 Urinary tract infection, site not specified; F31.9 Bipolar disorder, unspecified
CPT/HCPCS: 36415; 80048; 80076; 80307; 80320; 80329; 81003; 85025; 85610; 85730; 93005; 99284